=== PATIENT | female | born 1985 | race Caucasian/White ===

== ENCOUNTER 2017-12-02 22:01 | Observation (INO) | payer MEDICAID, SELFPAY ==
[2017-12-02 22:02] VITALS: BP 84/70; PULSE 111; RESP 13; TEMP 37.4; O2SAT 98; BMI 25.2
--- NOTE | 2017-12-02 22:19 | EKG12_ITS ---
Test Reason : EKG CHANGES Blood Pressure : / mmHG Vent. Rate : 091 BPM Atrial Rate : 091 BPM P-R Int : 146 ms QRS Dur : 104 ms QT Int : 380 ms P-R-T Axes : 067 -39 068 degrees QTc Int : 467 ms Normal sinus rhythm with sinus arrhythmia Left axis deviation Abnormal ECG Confirmed by MIREILLE ENCARNACION, ZHEN ([id number]), newspaper photo editor ROSSANA BECK ([id number]) on 12/05/2017 4:10:33 PM Referred By: EBONY Confirmed By:ZHEN KENDRICK MD
--- NOTE | 2017-12-02 22:19 | RAD_ITS ---
XR Chest 2 Views INDICATION: C/O PAIN OVER ENTIRE BODYPATIENT DID DRUGS PRIOR TO ARRIVALBEST IMAGES POSSIBLE DUE TO HOW PATIENT WAS ACTING COMPARISON: None TECHNIQUE: 2 views of the chest FINDINGS: Heart size and pulmonary vascularity are within normal limits. Lungs are hyperinflated, otherwise clear. There is hyperlucency projecting in the right upper and midlung field, could represent emphysematous changes. No evidence of pneumonia or pleural effusion. RAD/Chest PA and Lateral IMPRESSION: Hyperlucency centrally within the right upper lobe, may represent bulla. Correlation with prior film would be helpful, consider CT as clinically warranted. Lungs otherwise clear. at 0000 Reported and signed by: Marlene Diez MD Electronically Signed: Marlene Diez MD at 22:58 EDT Tel , Service support ,
--- NOTE | 2017-12-02 22:22 | ED.RN ---
NO OD EKG'S IN MUSE
[2017-12-02 22:53] LABS: Hematocrit 41.3 % (37-47); Hemoglobin 13.5 g/dl (12.0-15.0); Mean Corp Hgb Conc 32.7 g/gl (32-36); Mean Corpuscular Hgb 28.2 pg (27.0-32.0); Mean Corpuscular Volume 86.4 fL (81-99); Mean Platelet Vol. 9.2 fl (6.2-12.0); Platelet Count 301 K/mm3 (150-450); RBC Distribution Width CV 14.6 % (11.6-14.6); Red Blood Count 4.78 M/mm3 (4.2-5.4); White Blood Count 14.4 K/mm3 (4.4-11.0)
[2017-12-02 23:07] LABS: Erythrocyte Sedimentation Rate 12 mm/hr (0-20)
[2017-12-02 23:08] LABS: Prothrombin Time (Protime)PT. 13.3 SECONDS (11.7-14.9)
[2017-12-02 23:09] LABS: AST(SGOT) 20 U/L (15-37); Alanine Aminotransfer ALT/SGPT 26 U/L (13-56); Albumin, Serum 3.8 g/dL (3.2-5.0); Alkaline Phosphatase 89 U/L (45-117); Anion Gap 10 (5-15); BUN 14 mg/dL (7-18); BUN/Creat Ratio 16.5 RATIO (10-20); Bilirubin, Direct 0.15 mg/dL (0.00-0.30); Calcium,Total 8.6 mg/dL (8.5-10.1); Chloride 100 mmol/L (98-107); Creatinine, Serum 0.85 mg/dL (0.55-1.02); EST Glomerular Filtration Rate 83 mL/min (>60); Est Glom Filt Rate - Afr Amer 100 mL/min (>60); Estimated Creatinine Clearance 82.81 ml/min; Globulin 4.2 g/dL (2.2-4.2); Glucose 98 mg/dL (74-106); Partial Thromboplast Time 31.9 Seconds (24.1-36.2); Potassium 3.4 mmol/L (3.5-5.1); Sodium Level 138 mmol/L (136-145)
[2017-12-02 23:12] LABS: Red Blood Cells-Urine 0 SEEN /hpf (0-5)
[2017-12-02] MEDS: 0.9% Normal Saline 1,000 ML 1000 ML IV ×2 (23:13)
[2017-12-02 23:16] LABS: Color, Urine Yellow (Yellow); Glucose, Dipstick Normal (Normal); Ketone-Dipstick Negative (Negative); Leukocyte Esterase-Dipstick 500 /ul (Negative); Nitrite-Dipstick Negative (Negative); Occult Blood-Urine Negative /ul (Negative); Protein-Dipstick 15 mg/dl (Negative); Specific Gravity, Urine 1.015 (1.002-1.030); Urine Bilirubin Dipstick Negative (Negative); Urine Clarity Cloudy (Clear); Urine Urobilinogen 1 mg/dl (Normal)
--- NOTE | 2017-12-02 23:16 | ED.DCSUM_ITS ---
- ER Visit Summary Date of Service: 12/02/17 Chief Complaint: To ER by significant other because she is screaming that something is wrong holding the right side of her chest. History of Present Illness: The patient is a 32 F history of IV drug use. She has been injecting methamphetamine for approximately 1-1/2 years. She does complain of chills. She states she does not have a thermometer to assess her temperature. She denies headache. Denies visual, ocular or auditory symptoms. She denies sore throat or nasal congestion. She denies shortness of breath or difficulty breathing. She does report anterior right lower chest pain. She denies vomiting or diarrhea. She denies dysuria, frequency, urgency or hematuria. She denies any paresthesia, anesthesia or motor weakness. Hepatitis and HIV status is unknown Physical Examination: Patient is screaming. She has chills and piloerection upper extremity/forearms she is alert she is oriented. Vital signs remarkable for blood pressure 84 systolic with a heart rate of 111. She does appear ill. She does appear uncomfortable. Pupils are 4-5 mm and reactive. Posterior pharynx unremarkable. TMs are normal. Neck is supple. Heart is rapid and regular with no appreciable murmur, gallop or rub. Lungs are clear to auscultation. Abdomen is soft nontender with no hepatomegaly. Negative Ragland sign. Patient does have track johnson. Is no obvious evidence of cellulitis or abscess. Test Results: White count is 14.4 thousand 80 segs no bands 13 lymphs. Electrolyte panel was marked for potassium of 2 3.4. Hepatic is normal. Coags are normal. Lactate is normal, 1.2. Urine reveals leukoesterase; however, is negative for nitrites and blood. Microscopic is remarkable for pyuria 25-50 WBCs and 1+ bacteria. Two-view chest x-ray interpreted by me as negative. Emergency Department Course and Treatment: Since she complains of chills and does have history of IV drug use will obtain blood cultures ?3, CBC, BMP. Because she is hypotensive she received a fluid bolus and a lactate was ordered. Because there is concern for bacterial endocarditis sed rate was obtained as well. Because she is complaining of chest pain a chest x-ray was obtained as well as EKG. Will treat for presumptive endocarditis and she will receive Rocephin, vancomycin and gentamicin. Treatment Plan: Since patient's urine is positive will send urine culture. She did respond to fluids. Blood pressure is greater than 100 with a mean arterial pressure greater than 65. Heart rate has improved and is less than 100. Disposition: This was paged for admission suggest stepdown unit versus ICU Impression: 1. Hypotension fluid responsive 2. UTI 3. Rule out endocarditis 4. Severe sepsis This note was generated with [employer] dictation software. It may contain incorrect words, spelling, and punctuation that were not noted in review of the chart prior to signing ED Disposition - Plan for ED Patient: Chief Complaint: Abd Pain Referrals: Care Physician,No Primary [Primary Care Provider] -
[2017-12-02 23:22] LABS: Basophil% 0.1 % (0-1); Eosinophil# 0.07 X10^3/uL; Eosinophils% 0.5 % (0-5); Lymphocyte # 2.01 X10^3/ul (4.0); Lymphocyte % 13.7 % (19-41); Monocyte% 5.5 % (0-10); Neutrophil # 11.72 X10^3/uL (2.7-7.7); Neutrophil % 80.1 % (47-70)
[2017-12-02 23:23] LABS: Absolute Lymphocyte Count 1.97 X10^3/ul (0.83-4.51); Absolute Neutrophil Count 11.5 X10^3/uL (2.0-7.7); Basophil# 0.01 X10^3/uL
[2017-12-02 23:24] LABS: Differential Indicated SCAN CRITERIA MET; POSITIVE COUNT YES; POSITIVE DIFFERENTIAL NO; POSITIVE MORPHOLOGY NO
[2017-12-02 23:25] LABS: Lactic Acid 1.2 mmol/L (0.4-2.0)
[2017-12-02 23:27] LABS: Squamous Epithelial Cells - UA 0-5 SEEN /hpf (5-10); White Blood Cells 25-50 SEEN /hpf (0-5)
[2017-12-02 23:28] LABS: Bacteria 1+ /hpf (None Seen); Mucous, Urine 1+ /hpf (<or=2+)
[2017-12-02] MEDS: Ketorolac 30 MG/ML Syringe IV (23:39)
[2017-12-03] VITALS (12 sets, daily range): BP systolic 97–112; BP diastolic 53–71; PULSE 70–113; RESP 15–22; TEMP 37–37.6; O2SAT 96–99; BMI 24.5; BMI 24.6
[2017-12-03 00:02] LABS: Differential Comment SCANNED
--- NOTE | 2017-12-03 01:54 | ECHOCS_ITS ---
Reason For Study: Chest pain Procedure This was a 2D Doppler, Color Flow transthoracic echocardiogram. Exam performed portable in patient room. Left Ventricle Normal LV size. Left ventricular systolic function is normal. The estimated ejection fraction is 60 %. No evidence for diastolic dysfunction. No regional wall motion abnormalities noted. Right Ventricle Normal RV size. Normal systolic function. Atria Normal left atrium. Normal right atrium. Mitral Valve Normal mitral valve. Tricuspid Valve Normal tricuspid valve. Aortic Valve Normal aortic valve. Trisinus/trileaflet aortic valve. Pulmonic Valve Normal pulmonic valve. Great Vessels Normal aortic root. The pulmonary artery is normal size. Normal inferior vena cava. Pericardium/Pleural No pericardial effusion. MMode/2D Measurements & Calculations LVIDd: 4.6 cm IVSd: 0.98 cm Ao root diam: 2.7 cm LVIDs: 2.9 cm LVPWd: 0.91 cm LA dimension: 3.8 cm RVDd: 3.2 cm FS: 36.5 % LAV(MOD-bp): 33.9 ml LA A4 area: 15.1 cm2 RA A4 area: 12.9 cm2 LAV(MOD-bp) Indexed: 19.8 ml/m2 LAV(MOD-sp2): 28.6 ml LAV(MOD-sp4): 35.3 ml Doppler Measurements & Calculations MV E max juan: 99.7 cm/sec Lat Peak E' Juan: 11.8 cm/sec Med Peak E' Juan: 9.3 cm/sec MV A max juan: 96.3 cm/sec E/E' lat: 8.4 E/E' med: 10.7 MV E/A: 1.0 Ao V2 max: 130.5 cm/sec LV V1 max: 97.4 cm/sec PA V2 max: 82.3 cm/sec Ao max P.8 mmHg LV V1 max P.8 mmHg Interpretation Summary Normal LV size. Left ventricular systolic function is normal. The estimated ejection fraction is 60 %. No evidence for diastolic dysfunction. Structurally normal valves. Ordering Physician: Greg Hampton Referring Physician: Tammie PCP Performed By: Flaca Quevedo RDCS
[2017-12-03] MEDS: 0.9% Normal Saline 1,000 ML 150 ML IV ×3 (03:02→16:49)
--- NOTE | 2017-12-03 03:05 | PCM.HP.STD ---
Problem List (1) Drug abuse Status: Acute (2) UTI (urinary tract infection) Status: Acute (3) Sepsis Status: Acute History of Present Illness Date of Admission: 12/03/17 Chief Complaint: Sepsis secondary to UTI The patient is a 32 year old female w/ h/o IV methamphetamine abuse admitted for sepsis secondary to UTI. She is a poor historian secondary to being intoxicated with methamphetamine. She c/o chills and that the right side of her chest hurts. She is unable to tell the severity, duration, and triggers. She will be admitted for further workup. Past Medical History Allergies latex Allergy (Verified 12/02/17 22:04) Rash Lives: Friends Smoking Status: Current every day smoker Alcohol: None Drugs: - - Meth Review of Systems Constitutional: Denies: Chills, Fever, Weight Change HEENT: Denies: Head Aches, Sinus Congestion, Sinus Drainage Cardiovascular: Denies: Chest Pain, Palpitations Respiratory: Denies: Cough, Shortness of breath at rest, Sputum production Gastrointestinal: Denies: Abdominal Pain, Nausea, Vomiting Genitourinary: Denies: Dysuria Musculoskeletal: Denies: Joint Pain, Joint Tenderness Skin: Denies: Rash, Wounds Neurological: Denies: Numbness, Tingling, Focal weakness Psychiatric: Denies: Anxiety, Depression, Homicidal Ideations, Suicidal Ideations Hematologic/ Lymphatic: Denies: Easy Bruising, Easy Bleeding VTE Information - Inpt Only VTE Present on Admission: No VTE Mechan Device Prophylaxis: SCD's VTE Pharm Prophylaxis ordered?: Yes Patient Problems: Active and Suspected Problems Drug abuse (Acute) UTI (urinary tract infection) (Acute) Sepsis (Acute) - Physical Exam General: Alert, Oriented x3, Cooperative HEENT: Atraumatic, PERRLA, EOMI, Normocephalic Neck: Supple, No JVD, Negative Carotid Bruits Lungs: Clear to auscultation, Normal air movement Cardiovascular: Regular rate, No murmurs Abdomen: Bowel Sounds Present, Soft, Non Tender Extremities: No edema, Capillary Refill Less than 3 Seconds Skin: No rashes, No breakdown, - - Track johnson noted Musculoskeletal: No Tenderness to Palpation of Joints or Extremities Neurological: Cranial nerves II-XII grossly intact Psych/Mental Status: Normal Affect, Appropriate Vital Signs Temp Pulse Resp BP Pulse Ox 98.6 F 70 22 H 102/53 L 97 12/03/17 01:45 12/03/17 01:45 12/03/17 01:45 12/03/17 01:45 12/03/17 01:45 Oxygen Delivery Method Room Air Weight: 64.9 kg Body Mass Index (BMI) 24.5 Laboratory Tests Past 24 Hrs 12/03/17 12/03/17 12/03/17 02:10 02:10 02:10 Troponin I Pending Hep Bs Antigen Pending Hep Bs Antibody Pending Hepatitis C Ab (EIA) Pending Hepatitis C Comment Pending HIV 1&2 Antibody Pending Assessment/Plan Active and Suspected Problems Drug abuse (Acute) UTI (urinary tract infection) (Acute) Sepsis (Acute) 32 year old female w/ h/o IV methamphetamine abuse admitted for sepsis secondary to UTI. 1) UTI: Will start ceftriaxone. Will also start vancomycin and gentamicin for synergy mechanism in possible infective endocarditis. Cultures pending. 2) Severe sepsis: Pt is hypotensive. Will continue to give 30 ml/kg NS for hypotension. Cultures pending. ECHO pending. 3) Right sided chest pain: Probably MSK. Will get serial trops. ECHO pending. 4) Prophylaxis: SCD / Heparin.
--- NOTE | 2017-12-03 03:11 | PCM.RX.CS ---
Consult Pharmacy has been consulted to manage selected antiobiotic: Vancomycin Type of Consult: New start Suspected Infection: Sepsis Prior Doses of Antibiotics Received/Current Regimen: 1000mg given in ED 12/03/17 @0123 Medications Vancomycin HCl (Vancomycin) 1,000 mg in 200 mls @ 200 mls/hr IV Q8H CIRO Labs: Sodium 138 mmol/L (136-145) 12/02/17 22:25 Potassium 3.4 mmol/L (3.5-5.1) L 12/02/17 22:25 Chloride 100 mmol/L (98-107) 12/02/17 22:25 Carbon Dioxide 28.0 mmol/L (21.0-32.0) 12/02/17 22:25 Anion Gap 10 (5-15) 12/02/17 22:25 BUN 14 mg/dL (7-18) 12/02/17 22:25 Creatinine 0.85 mg/dL (0.55-1.02) 12/02/17 22:25 Est GFR (MDRD) Af Amer 100 mL/min (>60) 12/02/17 22:25 Est GFR (MDRD) Non-Af 83 mL/min (>60) 12/02/17 22:25 BUN/Creatinine Ratio 16.5 RATIO (10-20) 12/02/17 22:25 Glucose 98 mg/dL (74-106) 12/02/17 22:25 Weight used for dosin.9 kg Estimated Creatinine Clearance: 98 Goal Trough: 15-20 mcg/mL Pharmacy Plan for Drug Dosing: Pharmacy Service will continue to monitor and adjust dosing as required. Follow-Up Labs: Trough Vancomycin Labs to be done on [date and time ordered]: 12/04/17 @0030
[2017-12-03 03:30] LABS: Vista UDS pH Range 8
[2017-12-03 03:59] LABS: Amphetamine Urine VISTA POSITIVE (<1000 ng/mL); Barbiturate Urine VISTA NEGATIVE (< 200 ng/mL); Benzodiazepine Urine VISTA NEGATIVE (< 200 ng/mL); Cocaine Urine VISTA POSITIVE (< 300 ng/mL); Ecstacy Urine VISTA NEGATIVE (< 500 ng/mL); Methadone Urine VISTA NEGATIVE (< 300 ng/mL); PCP Urine VISTA NEGATIVE (< 25 ng/mL); THC Urine VISTA NEGATIVE (< 50 ng/mL)
[2017-12-03 05:25] LABS: Lactic Acid 0.6 mmol/L (0.4-2.0)
--- NOTE | 2017-12-03 05:55 | RAD_ITS ---
STUDY: X-RAY CHEST REASON FOR EXAM: Female, 32 years old. Shortness of breath. Body aches. TECHNIQUE: Single AP portable view of the chest. COMPARISON: Comparison is made with prior study dated December 02, 2017. FINDINGS: EKG electrodes are seen. The lungs are clear. The lungs are clear and expanded. There is no demonstrated pleural abnormality. Normal size heart. Normal mediastinum and shayla. Normal visualized pulmonary arteries. Normal visualized aortic arch and descending thoracic aorta. Normal visualized thoracic spine. Normal visualized ribs, clavicles, and shoulders. There is no demonstrated abnormality of the visualized soft tissue structures of the upper abdomen. RAD/Chest 1 View (Portable) IMPRESSION: Normal x-ray examination of the chest. Electronically Signed: Oscar Hobbs MD at 8:51 EDT Tel [phone], Service support ,
[2017-12-03 07:09] LABS: Gentamicin, Random 1.8 ug/mL
--- NOTE | 2017-12-03 07:37 | PCM.PROGNOTE ---
Patient Problems: Active and Suspected Problems Drug abuse (Acute) UTI (urinary tract infection) (Acute) Sepsis (Acute) Subjective: Patient is a 32-year-old female with history of IV amphetamine abuse and nicotine dependence who presented to the emergency room at [facility] [place] on 12/03/2017 complaining of chills and right-sided chest pain. She was a very poor historian. Vital signs at presentation to the emergency room were temperature 99.4, pulse rate 111, blood pressure 84/70, respiratory rate 13 and she was 98% saturated on room air. Significant lab included a white blood cell count of 14.4 with 80% neutrophils. Hemoglobin was 13.5 and platelets were 301,000. Potassium was mildly decreased at 3.4. LFTs were unremarkable. Lactic acid at admission was 1.2. Troponin was less than 0.02. BUN was 14 with a creatinine of 0.85. The urine had 25-50 WBCs and 0-5 squamous epithelial cells. He was nitrite negative. Urine tox screen was positive for amphetamines and cocaine. Chest x-ray revealed no infiltrates. Blood and urine cultures were ordered. The patient was admitted to the hospital with a dx of severe sepsis secondary to urinary tract infection and started on vancomycin, gentamicin and ceftriaxone. She started using meth to get off heroin. She tells me that she started using heroin when her son . Apparently he had a trach and possibly some defects. Prior to that she used POT and other drugs when she was in high school but tells me she quit using drugs when she became a mother. She has 3 other children and they are in foster care. Her is also an IV drug user and they share needles. She has not been tested for HIV or hepatitis and neither has her . She has never been to rehab and when I asked her if she was interested in talking to a drug counsellor about drug rehab she told me know. Neither she not her have jobs. She appears anxious and is constantly moving. She wants to know when she may get out of the hospital. She is c/o of R lateral abdominal pain and pain in the R flank. No imaging of the R kidney was done at admission but she had a ECHO today to r/o endocarditis. The blood pressure improved with hydration and so has the heart rate. She continues to have periods of sinus tachycardia when she is up and about. Echocardiogram shows a 60% ejection fraction with no evidence for diastolic dysfunction and structurally normal valves with no evidence of vegetation. - Physical Exam General: Alert, Cooperative, - - She is restless and does not make good eye contact HEENT: Atraumatic, Normocephalic Oral: Dry Mucosa Neck: Supple, No Nodes, Trachea Midline Lungs: Clear to auscultation Cardiovascular: Regular Rhythm, Normal S1, Normal S2, No murmurs, No Gallop, Tachycardic, - - telemetry shows NSR and ST with no significant ectopy Abdomen: Bowel Sounds Present, Soft, Non-Distended, Tender - she complains of tenderness but, she has no guarding Extremities: No clubbing, No cyanosis, No edema Skin: No rashes, No breakdown Neurological: Cranial nerves II-XII grossly intact, Neuro grossly intact Psych/Mental Status: Appropriate, - - restless Vital Signs Temp Pulse Resp BP Pulse Ox 99.7 F H 107 H 18 111/59 L 96 12/03/17 06:34 12/03/17 07:00 12/03/17 06:34 12/03/17 06:34 12/03/17 06:34 Oxygen Delivery Method Room Air Weight: 143 lb 1.28 oz Body Mass Index (BMI) 24.5 Intake and Output for Last 24 Hours 12/01/17 12/02/17 12/03/17 22:59 23:59 23:59 Intake Total 1358 / 1358 Output Total 450 / 450 Balance 908 / 908 Laboratory Tests Past 24 Hrs 12/03/17 12/03/17 12/03/17 02:10 02:10 02:10 Lactic Acid Troponin I < 0.02 Random Gentamicin Hep Bs Antigen Pending Hep Bs Antibody Pending Hepatitis C Ab (EIA) Pending Hepatitis C Comment Pending HIV 1&2 Antibody Pending 12/03/17 12/03/17 12/03/17 04:50 04:50 06:15 Lactic Acid 0.6 Troponin I < 0.02 Random Gentamicin 1.8 Hep Bs Antigen Hep Bs Antibody Hepatitis C Ab (EIA) Hepatitis C Comment HIV 1&2 Antibody Assessment/Plan Active and Suspected Problems Drug abuse (Acute) UTI (urinary tract infection) (Acute) Sepsis (Acute) Impressions 1. severe sepsis ruled out - no end organ damage and the lactic acid was WNL at admisison 2. cystitis 3. Hypokalemia 4. tobacco dependence 5. Illicit IV drug use - drug screen positive for Meth and cocaine. She is currently afebrile. If she remains afebrile will likely Dc home in the AM. Refuses consult with [facility]. HIV and hepatitis panels are pending. antibiotic spectrum narrowed to Rocephin only. Code Visit Inpatient E&M: 10528 Subs Hosp L2
[2017-12-03] MEDS: 0.9% NaCl Peripheral Flush Adult/Peds IV (08:35)
[2017-12-03] MEDS: Acetaminophen 325 MG Tablet 650 MG PO (09:17)
[2017-12-03] MEDS: Ceftriaxone 1 GM/50 ML BAG IV (10:16)
--- NOTE | 2017-12-03 11:39 | CPS ---
CONT.PULSE OX PLACED AT BEDSIDE PER NURSE REQUEST, NOT TO SET UP AT THIS TIME. NURSE WILL SET UP ON PT WHEN PT. IS AWAKE.
[2017-12-03 12:25] LABS: HIV - WCH Non-Reactive (Nonreactive)
--- NOTE | 2017-12-03 13:08 | CASEMGMT ---
RN CM ASSESSMENT COMPLETE. LACE Strata: 1 Adm Dx: Sepsis, UTI, Drug Abuse Transition Planning/Care Coordination: SW referral for psychosocial evaluation secondary to drug abuse. Patient does not have insurance and no PCP, social work will provide information re: PCP (Madiha Butts). No home-going RN CM intervention needs identified. RN CM will follow hospital course in collaboration with social work and will assist should transition needs arise. Verbal handoff provided to RN KAREN, Eddie Thompson, JENN JONES. Disposition: Home T. Mni BSN, RN-BC, CCM
--- NOTE | 2017-12-03 13:26 | NURSING ---
This RN taking over care at this time
--- NOTE | 2017-12-03 18:38 | NURSING ---
Patient leaving floor AMA at this time
[2017-12-03 21:01] LABS: Internal QC Validated? YES +Cl - CLEAR BKGD; Pregnancy, Urine Negative Negative
--- NOTE | 2017-12-04 06:39 | PCM.DC.SUM ---
Discharge Date and Diagnosis Date of Admission: 12/03/17 Date of Discharge: 12/03/17 - AMA - Primary Discharge Diagnosis Severe sepsis - ruled out Cystitis Hypokalemia - Secondary Discharge Diagnosis IV drug abuse - Methamphetamine and Cocaine Tobacco dependence Hospital Course and Treatment Imaging Results: Clinical Impression(s) from Imaging Studies Chest X-Ray 12/02/17 22:19 IMPRESSION: Hyperlucency centrally within the right upper lobe, may represent bulla. Correlation with prior film would be helpful, consider CT as clinically warranted. Lungs otherwise clear. at 0000 Reported and signed by: Marlene Diez MD Electronically Signed: Marlene Diez MD at 22:58 EDT Tel , Service support , Chest X-Ray 12/03/17 05:55 IMPRESSION: Normal x-ray examination of the chest. Electronically Signed: Oscar Hobbs MD at 8:51 EDT Tel [phone], Service support , Laboratory Tests 12/02/17 12/02/17 12/02/17 22:25 22:25 22:25 WBC 14.4 H RBC 4.78 Hgb 13.5 Hct 41.3 MCV 86.4 MCH 28.2 MCHC 32.7 RDW 14.6 RDW Differential 46.0 H Plt Count 301 MPV 9.2 Immature Gran % (Auto) 0.100 Neut % (Auto) 80.1 H Lymph % (Auto) 13.7 L [place] % (Auto) 5.5 Eos % (Auto) 0.5 Baso % (Auto) 0.1 Absolute Neuts (auto) 11.5 H Absolute Lymphs (auto) 1.97 Total Counted Not Reportable Differential Comment SCANNED ESR 12 PT 13.3 INR 1.0 APTT 31.9 Sodium 138 Potassium 3.4 L Chloride 100 Carbon Dioxide 28.0 Anion Gap 10 BUN 14 Creatinine 0.85 Estim Creat Clear Calc 82.81 Est GFR (MDRD) Af Amer 100 Est GFR (MDRD) Non-Af 83 BUN/Creatinine Ratio 16.5 Glucose 98 Lactic Acid Calcium 8.6 Total Bilirubin 0.70 Direct Bilirubin 0.15 AST 20 ALT 26 Alkaline Phosphatase 89 Troponin I Total Protein 8.0 Albumin 3.8 Globulin 4.2 Urine Color Urine Clarity Urine pH Ur Specific [place] Urine Protein Urine Glucose (UA) Urine Ketones Urine Occult Blood Urine Nitrite Urine Bilirubin Urine Urobilinogen Ur Leukocyte Esterase Urine RBC Urine WBC Ur Squamous Epith Cells Urine Bacteria Urine Mucus Urine Test Random Gentamicin Urine Opiates Screen Urine Methadone Screen Ur Barbiturates Screen Ur Phencyclidine Scrn Ur Amphetamines Screen U Methamphetamin-MDMA U Benzodiazepines Scrn Urine Cocaine Screen U Cannabinoids Screen Ur Drug Screen Comment HIV 1&2 Antibody 12/02/17 12/02/17 12/02/17 22:25 22:55 22:55 WBC RBC Hgb Hct MCV MCH MCHC RDW RDW Differential Plt Count MPV Immature Gran % (Auto) Neut % (Auto) Lymph % (Auto) [place] % (Auto) Eos % (Auto) Baso % (Auto) Absolute Neuts (auto) Absolute Lymphs (auto) Total Counted Differential Comment ESR PT INR APTT Sodium Potassium Chloride Carbon Dioxide Anion Gap BUN Creatinine Estim Creat Clear Calc Est GFR (MDRD) Af Amer Est GFR (MDRD) Non-Af BUN/Creatinine Ratio Glucose Lactic Acid 1.2 Calcium Total Bilirubin Direct Bilirubin AST ALT Alkaline Phosphatase Troponin I Total Protein Albumin Globulin Urine Color Yellow Urine Clarity Cloudy Urine pH 8.0 Ur Specific [place] 1.015 Urine Protein 15 H Urine Glucose (UA) Normal Urine Ketones Negative Urine Occult Blood Negative Urine Nitrite Negative Urine Bilirubin Negative Urine Urobilinogen 1 H Ur Leukocyte Esterase 500 H Urine RBC 0 SEEN Urine WBC 25-50 SEEN Ur Squamous Epith Cells 0-5 SEEN Urine Bacteria 1+ Urine Mucus 1+ Urine Test Random Gentamicin Urine Opiates Screen NEGATIVE Urine Methadone Screen NEGATIVE Ur Barbiturates Screen NEGATIVE Ur Phencyclidine Scrn NEGATIVE Ur Amphetamines Screen POSITIVE H U Methamphetamin-MDMA NEGATIVE U Benzodiazepines Scrn NEGATIVE Urine Cocaine Screen POSITIVE H U Cannabinoids Screen NEGATIVE Ur Drug Screen Comment HIV 1&2 Antibody 12/02/17 12/03/17 12/03/17 22:55 02:10 02:10 WBC RBC Hgb Hct MCV MCH MCHC RDW RDW Differential Plt Count MPV Immature Gran % (Auto) Neut % (Auto) Lymph % (Auto) [place] % (Auto) Eos % (Auto) Baso % (Auto) Absolute Neuts (auto) Absolute Lymphs (auto) Total Counted Differential Comment ESR PT INR APTT Sodium Potassium Chloride Carbon Dioxide Anion Gap BUN Creatinine Estim Creat Clear Calc Est GFR (MDRD) Af Amer Est GFR (MDRD) Non-Af BUN/Creatinine Ratio Glucose Lactic Acid Calcium Total Bilirubin Direct Bilirubin AST ALT Alkaline Phosphatase Troponin I < 0.02 Total Protein Albumin Globulin Urine Color Urine Clarity Urine pH Ur Specific [place] Urine Protein Urine Glucose (UA) Urine Ketones Urine Occult Blood Urine Nitrite Urine Bilirubin Urine Urobilinogen Ur Leukocyte Esterase Urine RBC Urine WBC Ur Squamous Epith Cells Urine Bacteria Urine Mucus Urine Test Negative Random Gentamicin Urine Opiates Screen Urine Methadone Screen Ur Barbiturates Screen Ur Phencyclidine Scrn Ur Amphetamines Screen U Methamphetamin-MDMA U Benzodiazepines Scrn Urine Cocaine Screen U Cannabinoids Screen Ur Drug Screen Comment HIV 1&2 Antibody Non-Reactive 12/03/17 12/03/17 12/03/17 04:50 04:50 06:15 WBC RBC Hgb Hct MCV MCH MCHC RDW RDW Differential Plt Count MPV Immature Gran % (Auto) Neut % (Auto) Lymph % (Auto) [place] % (Auto) Eos % (Auto) Baso % (Auto) Absolute Neuts (auto) Absolute Lymphs (auto) Total Counted Differential Comment ESR PT INR APTT Sodium Potassium Chloride Carbon Dioxide Anion Gap BUN Creatinine Estim Creat Clear Calc Est GFR (MDRD) Af Amer Est GFR (MDRD) Non-Af BUN/Creatinine Ratio Glucose Lactic Acid 0.6 Calcium Total Bilirubin Direct Bilirubin AST ALT Alkaline Phosphatase Troponin I < 0.02 Total Protein Albumin Globulin Urine Color Urine Clarity Urine pH Ur Specific [place] Urine Protein Urine Glucose (UA) Urine Ketones Urine Occult Blood Urine Nitrite Urine Bilirubin Urine Urobilinogen Ur Leukocyte Esterase Urine RBC Urine WBC Ur Squamous Epith Cells Urine Bacteria Urine Mucus Urine Test Random Gentamicin 1.8 Urine Opiates Screen Urine Methadone Screen Ur Barbiturates Screen Ur Phencyclidine Scrn Ur Amphetamines Screen U Methamphetamin-MDMA U Benzodiazepines Scrn Urine Cocaine Screen U Cannabinoids Screen Ur Drug Screen Comment HIV 1&2 Antibody 12/03/17 12/03/17 09:25 14:42 WBC RBC Hgb Hct MCV MCH MCHC RDW RDW Differential Plt Count MPV Immature Gran % (Auto) Neut % (Auto) Lymph % (Auto) [place] % (Auto) Eos % (Auto) Baso % (Auto) Absolute Neuts (auto) Absolute Lymphs (auto) Total Counted Differential Comment ESR PT INR APTT Sodium Potassium Chloride Carbon Dioxide Anion Gap BUN Creatinine Estim Creat Clear Calc Est GFR (MDRD) Af Amer Est GFR (MDRD) Non-Af BUN/Creatinine Ratio Glucose Lactic Acid Calcium Total Bilirubin Direct Bilirubin AST ALT Alkaline Phosphatase Troponin I < 0.02 < 0.02 Total Protein Albumin Globulin Urine Color Urine Clarity Urine pH Ur Specific [place] Urine Protein Urine Glucose (UA) Urine Ketones Urine Occult Blood Urine Nitrite Urine Bilirubin Urine Urobilinogen Ur Leukocyte Esterase Urine RBC Urine WBC Ur Squamous Epith Cells Urine Bacteria Urine Mucus Urine Test Random Gentamicin Urine Opiates Screen Urine Methadone Screen Ur Barbiturates Screen Ur Phencyclidine Scrn Ur Amphetamines Screen U Methamphetamin-MDMA U Benzodiazepines Scrn Urine Cocaine Screen U Cannabinoids Screen Ur Drug Screen Comment HIV 1&2 Antibody none Operations: None Procedures: None Summary of Care Provided: Patient is a 32-year-old female with history of IV amphetamine abuse and nicotine dependence who presented to the emergency room at [facility] on 12/03/2017 complaining of chills and right-sided chest pain. She was a very poor historian. Vital signs at presentation to the emergency room were temperature 99.4, pulse rate 111, blood pressure 84/70, respiratory rate 13 and she was 98% saturated on room air. Significant lab included a white blood cell count of 14.4 with 80% neutrophils. Hemoglobin was 13.5 and platelets were 301,000. Potassium was mildly decreased at 3.4. LFTs were unremarkable. Lactic acid at admission was 1.2. Troponin was less than 0.02. BUN was 14 with a creatinine of 0.85. The urine had 25-50 WBCs and 0-5 squamous epithelial cells and was nitrite negative. Urine tox screen was positive for amphetamines and cocaine. Chest x-ray revealed no infiltrates. Blood and urine cultures were ordered. The patient was admitted to the hospital with a dx of severe sepsis secondary to urinary tract infection and started on vancomycin, gentamicin and ceftriaxone. The admitting physician ordered a ECHO to rule out endocarditis and it revealed a normal ejection fraction with no vegetations and no valvular heart disease. Gentamicin and vancomycin were discontinued and she was maintained on ceftriaxone. Drug rehabilitation was discussed with her and she refused referral to [facility]. Late in the afternoon on 12/03/2017 she elected to leave AGAINST MEDICAL ADVICE. Once again she was offered drug rehabilitation counseling and she refused. The last set of vital signs at 5 PM were temperature 98.6, heart rate 95, blood pressure 112/70, respiratory rate 16 and she was 98% saturated on room air. She was alert and oriented ?3 and able to make informed decisions. She was informed that she may return to the emergency room if she changes her mind and wants readmitted. No prescriptions were given since she chose to leave AMA and the cultures were still pending. HIV wqas non-reactive and the hepatitis panel is still pending. This note was generated with [employer] dictation software. It may contain incorrect words, spelling, and punctuation that were not noted in checking the note before signing. Primary Care Physician: Care Physician,No Primary [Primary Care Provider] - Disposition: Against Medical Advice Minutes spent on discharge:: 35 Patient Condition:: Guarded Meaningful Use Info Meaningful Use Diagnoses (Choose all that apply): None applicable Code Visit Inpatient E&M: 85870 Disch Hosp
--- NOTE | 2017-12-04 06:50 | DS.PCM_ITS ---
Discharge Date and Diagnosis Date of Admission: 12/03/17 Date of Discharge: 12/03/17 - AMA - Primary Discharge Diagnosis Severe sepsis - ruled out Cystitis Hypokalemia - Secondary Discharge Diagnosis IV drug abuse - Methamphetamine and Cocaine Tobacco dependence Hospital Course and Treatment Imaging Results: Clinical Impression(s) from Imaging Studies Chest X-Ray 12/02/17 22:19 IMPRESSION: Hyperlucency centrally within the right upper lobe, may represent bulla. Correlation with prior film would be helpful, consider CT as clinically warranted. Lungs otherwise clear. at 0000 Reported and signed by: Marlene Diez MD Electronically Signed: Marlene Diez MD at 22:58 EDT Tel , Service support , Chest X-Ray 12/03/17 05:55 IMPRESSION: Normal x-ray examination of the chest. Electronically Signed: Oscar Hobbs MD at 8:51 EDT Tel [phone], Service support , Laboratory Tests 12/02/17 12/02/17 12/02/17 22:25 22:25 22:25 WBC 14.4 H RBC 4.78 Hgb 13.5 Hct 41.3 MCV 86.4 MCH 28.2 MCHC 32.7 RDW 14.6 RDW Differential 46.0 H Plt Count 301 MPV 9.2 Immature Gran % (Auto) 0.100 Neut % (Auto) 80.1 H Lymph % (Auto) 13.7 L [place] % (Auto) 5.5 Eos % (Auto) 0.5 Baso % (Auto) 0.1 Absolute Neuts (auto) 11.5 H Absolute Lymphs (auto) 1.97 Total Counted Not Reportable Differential Comment SCANNED ESR 12 PT 13.3 INR 1.0 APTT 31.9 Sodium 138 Potassium 3.4 L Chloride 100 Carbon Dioxide 28.0 Anion Gap 10 BUN 14 Creatinine 0.85 Estim Creat Clear Calc 82.81 Est GFR (MDRD) Af Amer 100 Est GFR (MDRD) Non-Af 83 BUN/Creatinine Ratio 16.5 Glucose 98 Lactic Acid Calcium 8.6 Total Bilirubin 0.70 Direct Bilirubin 0.15 AST 20 ALT 26 Alkaline Phosphatase 89 Troponin I Total Protein 8.0 Albumin 3.8 Globulin 4.2 Urine Color Urine Clarity Urine pH Ur Specific [place] Urine Protein Urine Glucose (UA) Urine Ketones Urine Occult Blood Urine Nitrite Urine Bilirubin Urine Urobilinogen Ur Leukocyte Esterase Urine RBC Urine WBC Ur Squamous Epith Cells Urine Bacteria Urine Mucus Urine Test Random Gentamicin Urine Opiates Screen Urine Methadone Screen Ur Barbiturates Screen Ur Phencyclidine Scrn Ur Amphetamines Screen U Methamphetamin-MDMA U Benzodiazepines Scrn Urine Cocaine Screen U Cannabinoids Screen Ur Drug Screen Comment HIV 1&2 Antibody 12/02/17 12/02/17 12/02/17 22:25 22:55 22:55 WBC RBC Hgb Hct MCV MCH MCHC RDW RDW Differential Plt Count MPV Immature Gran % (Auto) Neut % (Auto) Lymph % (Auto) [place] % (Auto) Eos % (Auto) Baso % (Auto) Absolute Neuts (auto) Absolute Lymphs (auto) Total Counted Differential Comment ESR PT INR APTT Sodium Potassium Chloride Carbon Dioxide Anion Gap BUN Creatinine Estim Creat Clear Calc Est GFR (MDRD) Af Amer Est GFR (MDRD) Non-Af BUN/Creatinine Ratio Glucose Lactic Acid 1.2 Calcium Total Bilirubin Direct Bilirubin AST ALT Alkaline Phosphatase Troponin I Total Protein Albumin Globulin Urine Color Yellow Urine Clarity Cloudy Urine pH 8.0 Ur Specific [place] 1.015 Urine Protein 15 H Urine Glucose (UA) Normal Urine Ketones Negative Urine Occult Blood Negative Urine Nitrite Negative Urine Bilirubin Negative Urine Urobilinogen 1 H Ur Leukocyte Esterase 500 H Urine RBC 0 SEEN Urine WBC 25-50 SEEN Ur Squamous Epith Cells 0-5 SEEN Urine Bacteria 1+ Urine Mucus 1+ Urine Test Random Gentamicin Urine Opiates Screen NEGATIVE Urine Methadone Screen NEGATIVE Ur Barbiturates Screen NEGATIVE Ur Phencyclidine Scrn NEGATIVE Ur Amphetamines Screen POSITIVE H U Methamphetamin-MDMA NEGATIVE U Benzodiazepines Scrn NEGATIVE Urine Cocaine Screen POSITIVE H U Cannabinoids Screen NEGATIVE Ur Drug Screen Comment HIV 1&2 Antibody 12/02/17 12/03/17 12/03/17 22:55 02:10 02:10 WBC RBC Hgb Hct MCV MCH MCHC RDW RDW Differential Plt Count MPV Immature Gran % (Auto) Neut % (Auto) Lymph % (Auto) [place] % (Auto) Eos % (Auto) Baso % (Auto) Absolute Neuts (auto) Absolute Lymphs (auto) Total Counted Differential Comment ESR PT INR APTT Sodium Potassium Chloride Carbon Dioxide Anion Gap BUN Creatinine Estim Creat Clear Calc Est GFR (MDRD) Af Amer Est GFR (MDRD) Non-Af BUN/Creatinine Ratio Glucose Lactic Acid Calcium Total Bilirubin Direct Bilirubin AST ALT Alkaline Phosphatase Troponin I < 0.02 Total Protein Albumin Globulin Urine Color Urine Clarity Urine pH Ur Specific [place] Urine Protein Urine Glucose (UA) Urine Ketones Urine Occult Blood Urine Nitrite Urine Bilirubin Urine Urobilinogen Ur Leukocyte Esterase Urine RBC Urine WBC Ur Squamous Epith Cells Urine Bacteria Urine Mucus Urine Test Negative Random Gentamicin Urine Opiates Screen Urine Methadone Screen Ur Barbiturates Screen Ur Phencyclidine Scrn Ur Amphetamines Screen U Methamphetamin-MDMA U Benzodiazepines Scrn Urine Cocaine Screen U Cannabinoids Screen Ur Drug Screen Comment HIV 1&2 Antibody Non-Reactive 12/03/17 12/03/17 12/03/17 04:50 04:50 06:15 WBC RBC Hgb Hct MCV MCH MCHC RDW RDW Differential Plt Count MPV Immature Gran % (Auto) Neut % (Auto) Lymph % (Auto) [place] % (Auto) Eos % (Auto) Baso % (Auto) Absolute Neuts (auto) Absolute Lymphs (auto) Total Counted Differential Comment ESR PT INR APTT Sodium Potassium Chloride Carbon Dioxide Anion Gap BUN Creatinine Estim Creat Clear Calc Est GFR (MDRD) Af Amer Est GFR (MDRD) Non-Af BUN/Creatinine Ratio Glucose Lactic Acid 0.6 Calcium Total Bilirubin Direct Bilirubin AST ALT Alkaline Phosphatase Troponin I < 0.02 Total Protein Albumin Globulin Urine Color Urine Clarity Urine pH Ur Specific [place] Urine Protein Urine Glucose (UA) Urine Ketones Urine Occult Blood Urine Nitrite Urine Bilirubin Urine Urobilinogen Ur Leukocyte Esterase Urine RBC Urine WBC Ur Squamous Epith Cells Urine Bacteria Urine Mucus Urine Test Random Gentamicin 1.8 Urine Opiates Screen Urine Methadone Screen Ur Barbiturates Screen Ur Phencyclidine Scrn Ur Amphetamines Screen U Methamphetamin-MDMA U Benzodiazepines Scrn Urine Cocaine Screen U Cannabinoids Screen Ur Drug Screen Comment HIV 1&2 Antibody 12/03/17 12/03/17 09:25 14:42 WBC RBC Hgb Hct MCV MCH MCHC RDW RDW Differential Plt Count MPV Immature Gran % (Auto) Neut % (Auto) Lymph % (Auto) [place] % (Auto) Eos % (Auto) Baso % (Auto) Absolute Neuts (auto) Absolute Lymphs (auto) Total Counted Differential Comment ESR PT INR APTT Sodium Potassium Chloride Carbon Dioxide Anion Gap BUN Creatinine Estim Creat Clear Calc Est GFR (MDRD) Af Amer Est GFR (MDRD) Non-Af BUN/Creatinine Ratio Glucose Lactic Acid Calcium Total Bilirubin Direct Bilirubin AST ALT Alkaline Phosphatase Troponin I < 0.02 < 0.02 Total Protein Albumin Globulin Urine Color Urine Clarity Urine pH Ur Specific [place] Urine Protein Urine Glucose (UA) Urine Ketones Urine Occult Blood Urine Nitrite Urine Bilirubin Urine Urobilinogen Ur Leukocyte Esterase Urine RBC Urine WBC Ur Squamous Epith Cells Urine Bacteria Urine Mucus Urine Test Random Gentamicin Urine Opiates Screen Urine Methadone Screen Ur Barbiturates Screen Ur Phencyclidine Scrn Ur Amphetamines Screen U Methamphetamin-MDMA U Benzodiazepines Scrn Urine Cocaine Screen U Cannabinoids Screen Ur Drug Screen Comment HIV 1&2 Antibody none Operations: None Procedures: None Summary of Care Provided: Patient is a 32-year-old female with history of IV amphetamine abuse and nicotine dependence who presented to the emergency room at [facility] on 12/03/2017 complaining of chills and right-sided chest pain. She was a very poor historian. Vital signs at presentation to the emergency room were temperature 99.4, pulse rate 111, blood pressure 84/70, respiratory rate 13 and she was 98% saturated on room air. Significant lab included a white blood cell count of 14.4 with 80% neutrophils. Hemoglobin was 13.5 and platelets were 301,000. Potassium was mildly decreased at 3.4. LFTs were unremarkable. Lactic acid at admission was 1.2. Troponin was less than 0.02. BUN was 14 with a creatinine of 0.85. The urine had 25-50 WBCs and 0-5 squamous epithelial cells and was nitrite negative. Urine tox screen was positive for amphetamines and cocaine. Chest x-ray revealed no infiltrates. Blood and urine cultures were ordered. The patient was admitted to the hospital with a dx of severe sepsis secondary to urinary tract infection and started on vancomycin, gentamicin and ceftriaxone. The admitting physician ordered a ECHO to rule out endocarditis and it revealed a normal ejection fraction with no vegetations and no valvular heart disease. Gentamicin and vancomycin were discontinued and she was maintained on ceftriaxone. Drug rehabilitation was discussed with her and she refused referral to [facility]. Late in the afternoon on 12/03/2017 she elected to leave AGAINST MEDICAL ADVICE. Once again she was offered drug rehabilitation counseling and she refused. The last set of vital signs at 5 PM were temperature 98.6, heart rate 95, blood pressure 112/70, respiratory rate 16 and she was 98% saturated on room air. She was alert and oriented ?3 and able to make informed decisions. She was informed that she may return to the emergency room if she changes her mind and wants readmitted. No prescriptions were given since she chose to leave AMA and the cultures were still pending. HIV wqas non-reactive and the hepatitis panel is still pending. This note was generated with [employer] dictation software. It may contain incorrect words, spelling, and punctuation that were not noted in checking the note before signing. Primary Care Physician: Care Physician,No Primary [Primary Care Provider] - Disposition: Against Medical Advice Minutes spent on discharge:: 35 Patient Condition:: Guarded Meaningful Use Info Meaningful Use Diagnoses (Choose all that apply): None applicable Code Visit Inpatient E&M: 85834 Disch Hosp
[2017-12-04 09:08] LABS: HEPATITIS B SURFACE AG 6510 Negative (Negative); Hepatitis C Ab >11.0 s/co ratio (0.0-0.9)
[2017-12-04 11:25] LABS: Hep B Surface Antibodies Non Reactive (.)
== END 2017-12-03 18:35 | disposition left against medical advice (07) | DRG 690 ==
LOC: ED 12-03 00:20 → PCU 12-03 01:50
PROVIDERS: Admitting Provider Internal Medicine; Emergency Provider Emergency Medicine; Visit Provider Internal Medicine
DX: N30.90 Cystitis, unspecified without hematuria (principal); E87.6 Hypokalemia; F15.10 Other stimulant abuse, uncomplicated; F17.200 Nicotine dependence, unspecified, uncomplicated; F14.10 Cocaine abuse, uncomplicated
CPT/HCPCS: 36415; 51702; 71045; 71046; 80048; 80076; 80170; 80307; 81001; 81025; 83605; 84484; 85025; 85610; 85652; 85730; 86703; 86706; 86803; 87040; 87086; 87088; 87340; 93005; 93306; 97802; 99218; 99285; 99406; J7030; J7040; A4216; C8929; G0378; J3490

== ENCOUNTER 2019-03-28 16:26 | Emergency (ER) | payer SELFPAY ==
[2019-03-28 16:29] VITALS: BP 120/88; PULSE 84; RESP 18; TEMP 36.8; O2SAT 99; BMI 26.9
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
--- NOTE | 2019-03-28 17:10 | RAD_ITS ---
STUDY: X-RAY - LEFT HAND REASON FOR EXAM: Female, 33 years old. Pain TECHNIQUE: 3 view(s) of the hand. COMPARISON: None. FINDINGS: There is a comminuted fracture of the fifth proximal phalanx. There is no evidence of intra-articular extension. There is moderate displacement. There are no significant degenerative changes. There are no radiodense foreign bodies. RAD/Hand Min 3 Views IMPRESSION: Comminuted fracture of the fifth proximal phalanx. Electronically Signed: Jake Prakash, at 17:39 EDT Tel , Service support ,
[2019-03-28] MEDS: HYDROcodone Bitartrate/Apap 5/325 Tablet PO (17:20)
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
== END 2019-03-28 18:12 | disposition home or self-care (01) ==
PROVIDERS: Emergency Provider Emergency Medicine
DX: S62.617A Displaced fracture of proximal phalanx of left little finger, initial encounter for closed fracture (principal); S00.83XA Contusion of other part of head, initial encounter; T14.8XXA Other injury of unspecified body region, initial encounter; K02.9 Dental caries, unspecified; Y08.89XA Assault by other specified means, initial encounter; Y93.55 Activity, bike riding; Y92.9 Unspecified place or not applicable
CPT/HCPCS: 70486; 73130; 99283

== ENCOUNTER 2019-05-21 00:05 | Emergency (ER) | payer SELFPAY ==
[2019-05-21 00:06] VITALS: BP 115/78; PULSE 109; RESP 30; TEMP 37.2; O2SAT 99; BMI 27.1
--- NOTE | 2019-05-21 00:10 | ED.RN ---
CALLED FOR EKG PER RN REQUEST, PULLED OLD EKGS FOR
--- NOTE | 2019-05-21 00:25 | RAD_ITS ---
STUDY: X-RAY CHEST REASON FOR EXAM: Female, 34 years old. Chest tightness TECHNIQUE: 2 views COMPARISON: December 03 2017 FINDINGS: The lungs are clear and expanded. There is no demonstrated pleural abnormality. Normal size heart. Normal mediastinum and shayla. Normal visualized pulmonary arteries. Normal visualized aortic arch and descending thoracic aorta. Normal visualized thoracic spine. Normal visualized ribs, clavicles, and shoulders. There is no demonstrated abnormality of the visualized soft tissue structures of the upper abdomen. RAD/Chest PA and Lateral IMPRESSION: Normal x-ray examination of the chest. No acute findings in the lungs Electronically Signed: Brandon Colin MD at 1:17 EDT Tel , Service support ,
--- NOTE | 2019-05-21 00:25 | EKG12_ITS ---
Test Reason : CP Blood Pressure : / mmHG Vent. Rate : 103 BPM Atrial Rate : 103 BPM P-R Int : 136 ms QRS Dur : 090 ms QT Int : 372 ms P-R-T Axes : 070 046 041 degrees QTc Int : 487 ms Sinus tachycardia Otherwise normal ECG Confirmed by MALLY MEIER ([id number]), publications editor KANCHAN MICHEL ([id number]) on 05/27/2019 10:00:39 AM Referred By: SUMMER Confirmed By:MALLY MEIER
--- NOTE | 2019-05-21 00:25 | CT_ITS ---
STUDY: CT BRAIN WITHOUT CONTRAST REASON FOR EXAM: Female, 34 years old. Headaches RADIATION DOSAGE (If Supplied By Facility): CTDIvol = ( 44.99 ) mGy, DLP = ( 796.11 ) mGycm TECHNIQUE: Transaxial CT imaging of the brain was performed without administration of intravenous contrast material. Individualized dose optimization techniques were used for this CT. COMPARISON: No relevant priors. FINDINGS: Normal soft tissue structures. Normal calvarium. Normal size ventricles and extra-axial spaces for the patient's age. Normal white matter tracts of the cerebral hemispheres. Normal basal ganglia and thalami. Normal brainstem. Normal cerebellum. There is no intracranial hemorrhage. There are no findings of an acute ischemic infarction. Normal visualized paranasal sinuses. CT/Brain/Head without Contrast IMPRESSION: Normal unenhanced CT scan of the brain. No acute findings in the brain Electronically Signed: Brandon Colin MD at 2:07 EDT Tel , Service support ,
--- NOTE | 2019-05-21 00:27 | ED.VIS.GEN ---
History of Present Illness Chief Complaint: Headache Narrative: This patient is a 34-year-old female with a history of polysubstance abuse. She states she was dope sick all day today. Her last heroin use was about 4 AM. She found a bag of dope that she is not sure what it was and injected IV about an hour before presentation. She immediately developed a severe headache, chest tightness, heart racing, upper back pain. No history of prior similar symptoms. Past Medical History - Allergies and Home Meds Allergies/Adverse Reactions: Allergies latex Allergy (Verified 05/21/19 00:09) Rash Primary Care Physician: Care Physician,No Primary [Primary Care Provider] - Past Medical History: - - Polysubstance abuse Smoking Status: Current every day smoker Review of Systems All systems negative except as indicated General: Denies: Fever Cardiovascular: Reports: Chest pain, Palpitations, Heart racing Respiratory: Reports: Dyspnea Gastrointestinal: Denies: Vomiting, Diarrhea Neurological: Reports: Headache Physical Exam Vital Signs/Narrative: Vital Signs Temp Pulse Resp BP Pulse Ox 05/21/19 00:06 98.9 F 109 H 30 H 115/78 99 General: Acute Distress Head: Normocephalic, Atraumatic Eyes: EOMI ENT: Moist mucous membranes Cardiovascular: - - Heart is regular tachycardia I do not appreciate a murmur Respiratory: - - Tachypnea, lungs are clear without rales rhonchi or wheezes Abdomen: Soft Extremities: Nontender Skin: Normal color Neurological: Alert Psychological: Tearful Diagnostic/Tx/Re-eval Impressions Brain CT 05/21/19 00:25 IMPRESSION: Normal unenhanced CT scan of the brain. No acute findings in the brain Electronically Signed: Brandon Colin MD at 2:07 EDT Tel , Service support , Chest X-Ray 05/21/19 00:25 IMPRESSION: Normal x-ray examination of the chest. No acute findings in the lungs Electronically Signed: Brandon Colin MD at 1:17 EDT Tel , Service support , 05/21/19 00:25 CT Head [Brain/Head without Contrast] [CT] Stat Chest PA and Lateral [RAD] Stat Laboratory Results 05/21/19 05/21/19 00:31 00:31 WBC 6.3 RBC 4.65 Hgb 12.1 Hct 37.0 MCV 79.6 L MCH 26.0 L MCHC 32.7 RDW Std Deviation 40.1 RDW Coeff of Parish 14.1 Plt Count 290 MPV 9.0 Immature Gran % (Auto) 0.200 Neut % (Auto) 85.7 H Lymph % (Auto) 12.0 L Marshall % (Auto) 1.3 Eos % (Auto) 0.5 Baso % (Auto) 0.3 Absolute Neuts (auto) 5.4 Absolute Lymphs (auto) 0.76 L Nucleated RBC % 0 Sodium 137 Potassium 3.1 L Chloride 107 Carbon Dioxide 21.0 Anion Gap 9 BUN 18 Creatinine 0.92 Estim Creat Clear Calc 75.11 Est GFR (MDRD) Af Amer 91 Est GFR (MDRD) Non-Af 75 BUN/Creatinine Ratio 19.6 Glucose 127 H Calcium 8.9 Troponin I < 0.015 - EKG Initial EKG Interpretation: Sinus Tachycardia - Medical Decision Making EKG shows sinus tachycardia at a rate of 103 with no acute ischemic changes. Laboratory studies including troponin notable only for mild hypokalemia, she was given oral potassium chloride here. Chest x-ray and CT of the head are normal. I do believe her symptoms were related to drug use and that she likely received a stimulant rather than an opioid. She does feel much better on reevaluation. She was counseled on drug cessation and was discharged home. ED Disposition - Plan for ED Patient: Disposition: Home or Assisted Living Diagnosis: Drug abuse, Headache, Palpitations Instructions: HEADACHE, Unspecified, Palpitations Referrals: Care Physician,No Primary [Primary Care Provider] -
[2019-05-21] MEDS: LORazepam 2 MG/ML Syringe 1 MG IV (00:36)
[2019-05-21 00:38] LABS: Absolute Lymphocyte Count 0.76 X10^3/uL (0.83-4.51); Absolute Neutrophil Count 5.4 X10^3/uL (2.0-7.7); Basophil# 0.02 X10^3/uL; Basophil% 0.3 % (0-1); Eosinophil# 0.03 X10^3/uL; Eosinophils% 0.5 % (0-5); Hemoglobin 12.1 g/dL (12.0-15.0); Lymphocyte # 0.76 X10^3/ul (4.0); Mean Corp Hgb Conc 32.7 g/dL (32-36); Mean Corpuscular Volume 79.6 fL (81-99); Monocyte# 0.08 X10^3/uL; Monocyte% 1.3 % (0-10); NRBC Flagged by Analyzer 0 % (0-5); Neutrophil # 5.42 X10^3/uL (2.7-7.7); Neutrophil % 85.7 % (47-70); Platelet Count 290 K/mm3 (150-450); RBC Distribution Width CV 14.1 % (11.6-14.6); RBC Distribution Width SD 40.1 fl (35.1-43.9); Red Blood Count 4.65 M/mm3 (4.2-5.4); White Blood Count 6.3 K/mm3 (4.4-11.0)
[2019-05-21 00:57] LABS: Anion Gap 9 (5-15); BUN 18 mg/dL (7-18); BUN/Creat Ratio 19.6 RATIO (10-20); Calcium,Total 8.9 mg/dL (8.5-10.1); Chloride 107 mmol/L (98-107); Creatinine, Serum 0.92 mg/dL (0.55-1.02); EST Glomerular Filtration Rate 75 mL/min (>60); Est Glom Filt Rate - Afr Amer 91 mL/min (>60); Estimated Creatinine Clearance 75.11 ml/min; Glucose 127 mg/dL (74-106); Potassium 3.1 mmol/L (3.5-5.1); Sodium Level 137 mmol/L (136-145)
[2019-05-21 01:15] VITALS: BP 115/71; O2SAT 97
[2019-05-21 02:43] VITALS: BP 116/75; PULSE 108; RESP 18; O2SAT 99
--- NOTE | 2019-05-21 02:47 | ED.RN ---
PT REQUESTED PAPER PANTS AND THEY WERE PROVIDED. OKAY BY FOR PT TO WALK HOME. PENDING CHARGE NURSE APPROVAL.
--- NOTE | 2019-05-21 03:10 | ED.RN ---
FRIEND CAME TO [facility] PT. SHE AMBULATED TO LOBBY WITH A STEADY AND INDEPENDENT GAIT.
== END 2019-05-21 03:09 | disposition home or self-care (01) ==
PROVIDERS: Emergency Provider Emergency Medicine
DX: F19.10 Other psychoactive substance abuse, uncomplicated (principal); E87.6 Hypokalemia; R00.0 Tachycardia, unspecified; R06.82 Tachypnea, not elsewhere classified; R00.2 Palpitations; F17.200 Nicotine dependence, unspecified, uncomplicated; Z91.040 Latex allergy status
CPT/HCPCS: 70450; 71046; 80048; 84484; 85025; 93005; 96374; 99285; A4216

== ENCOUNTER 2019-12-21 01:55 | Emergency (ER) | payer SELFPAY ==
[2019-12-21 01:57] VITALS: BP 147/108; PULSE 85; RESP 18; TEMP 36.4; O2SAT 98; BMI 28.4
--- NOTE | 2019-12-21 02:21 | ED.VISSUMM ---
- ER Visit Summary Date of Service: 12/21/19 Chief Complaint: [Drug overdose] History of Present Illness: The patient is a 34 F [is to the emergency department with a drug overdose that occurred this evening. Patient thinks she was at her home. She is not sure who called EMS for her. EMS was called to the home by an individual who stated that patient had overdosed and he had given her 1 dose of Narcan. Patient was awake on EMS arrival complaining of feeling cold. She believes that they try to splash cold water on her to wake her up. Patient has history of drug abuse including heroin and methamphetamines. She denies feeling suicidal or homicidal. She does complain of a headache. She denies chest pain or abdominal pain. She denies shortness of breath. She has history of hep C.] Physical Examination: [HEENT-PERRLA, EOMI. Cranial nerves II through XII grossly intact. TMs clear. Mucous membranes moist. No adenopathy. No external evidence of trauma to her head. She has no C-spine tenderness on palpation. Cardiovascular-regular rate and rhythm without murmur or ectopy Lungs-clear to auscultation, chest wall stable without crepitus or subcu emphysema Abdomen-normoactive bowel sounds, soft, nontender, no rebound or rigidity, no peritoneal signs. Extremities-intact ?4, normal range of motion, normal pulses, atraumatic] Test Results: [None indicated] Emergency Department Course and Treatment: [Patient was placed on a hard rock miner and she was observed in the department for over an hour and a half. She had no further issues or complaints. On repeat examination at 3:25 AM she has no complaints. She is appropriate. Exam is normal.] Treatment Plan: [Patient will be referred to counseling center in 180 should she want to get help for her illicit drug use. She is advised to discontinue her illicit drug use.] Disposition: [Discharged home in stable condition] Impression: [Opiate overdose Illicit drug use] This note was generated with File[employer] dictation software. It may contain incorrect words, spelling, and punctuation that were not noted in review of the chart prior to signing ED Disposition - Plan for ED Patient: Referrals: Care Physician,No Primary [Primary Care Provider] -
[2019-12-21 03:05] VITALS: BP 114/85; PULSE 94; RESP 14; O2SAT 100
--- NOTE | 2019-12-21 03:25 | ED.DEP ---
ED Disposition - Plan for ED Patient: Instructions: ED Overdose Opiate Referrals: Care Physician,No Primary [Primary Care Provider] - Counseling,Center [GROUP OF PHYSICIANS] - 3-5 Days
[2019-12-21 03:32] VITALS: BP 119/84; PULSE 112; RESP 15; O2SAT 98
== END 2019-12-21 03:32 | disposition home or self-care (01) ==
PROVIDERS: Emergency Provider Emergency Medicine
DX: T40.1X1A Poisoning by heroin, accidental (unintentional), initial encounter (principal); Y92.009 Unspecified place in unspecified non-institutional (private) residence as the place of occurrence of the external cause; F11.10 Opioid abuse, uncomplicated; F15.10 Other stimulant abuse, uncomplicated; B19.20 Unspecified viral hepatitis C without hepatic coma; Z72.0 Tobacco use
CPT/HCPCS: 99284

== ENCOUNTER 2020-03-02 06:07 | Emergency (ER) | payer SELFPAY ==
[2020-03-02 06:08] VITALS: BP 131/83; PULSE 94; RESP 17; TEMP 36.8; O2SAT 95; BMI 27.1
--- NOTE | 2020-03-02 06:19 | EKG12_ITS ---
Test Reason : OVERDOSE Blood Pressure : / mmHG Vent. Rate : 086 BPM Atrial Rate : 086 BPM P-R Int : 174 ms QRS Dur : 112 ms QT Int : 384 ms P-R-T Axes : 068 008 049 degrees QTc Int : 459 ms Normal sinus rhythm Normal ECG Confirmed by MALLY MEIER ([id number]), editor news DILLAN JOVEL ([id number]) on 03/04/2020 7:40:58 AM Referred By: JEAN Confirmed By:MALLY MEIER
--- NOTE | 2020-03-02 06:19 | RAD_ITS ---
HISTORY: OVERDOSE PATIENT'S FRIENDS GAVE PATIENT CPR WHILE PATIENT HAD A PULSE EMESIS AFTER NARCAN ADDITIONAL HISTORY: None provided. TECHNIQUE: Frontal chest radiograph. Number of images including paperwork: 1 COMPARISON: 05/21/2019 FINDINGS: LUNGS AND PLEURA: No consolidation, mass or pleural effusion. CARDIAC SILHOUETTE: Unremarkable. MEDIASTINUM AND GREGORIA: Unremarkable. UPPER ABDOMEN: Unremarkable. SKELETON AND SOFT TISSUES: No acute findings. OTHER DEVICES AND HARDWARE: None. RAD/Chest 1 View (Portable) IMPRESSION: No acute cardiopulmonary abnormality. at 0702 Reported and signed by: Ivelisse Gu MD Electronically Signed: Ivelisse Gu MD at 7:02 EDT Tel , Service support ,
--- NOTE | 2020-03-02 06:23 | ED.DCSUM_ITS ---
- ER Visit Summary Date of Service: 03/02/20 Chief Complaint: IV drug overdose History of Present Illness: The patient is a 34 F history of drug abuse. Patient states this is happened to her before. She was using an IV opiate tonight suspected heroin but she says she does not know exactly what she shot up . She became unconscious. Bystanders did CPR. Paramedics were called. When they arrived patient had a pulse. They gave her 2 dosages of Narcan and she regained consciousness. Physical Examination: Young female no acute distress vital signs stable afebrile. Initial blood pressure 131/83. Pulse ox 95% on room air. She is in no distress. She is resting comfortably. She denies any complaints. H EENT exam unremarkable. Pupils round reactive light. No signs of trauma. She has a tongue piercing. Neck nontender. No JVD. No lymphadenopathy. Lungs clear to auscultation bilaterally. Heart regular rate and rhythm no murmur rate about 90. Chest wall nontender. No ecchymosis or bruising. No subcu air or crepitance. No sternal tenderness. Abdomen soft nontender normal bowel sounds no peritoneal signs. Nondistended. Pelvic girdle intact. Extremities moves all 4. Calves nontender without edema or cords. Back nontender. Neurologically she is awake and alert. She is answering questions and following commands. She has no focal motor deficits. Test Results: EKG shows normal sinus rhythm rate of 86 no acute signs of AR, ischemia nor dysrhythmia. Portable chest x-ray 1 view read by myself shows no acute abnormality. No rib fractures. No pneumothorax. Normal cardiac silhouette. Emergency Department Course and Treatment: Patient is an apparent IV opioid (suspected heroin) overdose. She was treated with Narcan at the scene by paramedics. She was given bystander CPR that is the reason I am checking an EKG and chest x-ray but clinically she has normal cardiac rhythm and her chest wall is nontender. Repeat exam at 7:12 AM patient is doing well. She will be written for discha shane. Treatment Plan: Follow-up with 180. Return if feeling worse. Disposition: Discharge Impression: Acute IV opiate overdose History of drug abuse This note was generated with [employer] software. It may contain incorrect words, spelling, and punctuation that were not noted in review of the chart prior to signing ED Disposition - Plan for ED Patient: Disposition: Home or Assisted Living Instructions: ED Overdose Opiate Referrals: Kendell Noe MD [NON-STAFF] - As Needed [facility] [STAFF PHYSICIAN] - As soon as possible Additional Instructions: Follow-up with the drug counseling treatment center [facility].
--- NOTE | 2020-03-02 06:26 | ED.DEP ---
ED Disposition - Plan for ED Patient: Disposition: Home or Assisted Living Instructions: ED Overdose Opiate Referrals: Kendell Noe MD [NON-STAFF] - As Needed [facility] [STAFF PHYSICIAN] - As soon as possible Additional Instructions: Follow-up with the drug counseling treatment center [facility].
[2020-03-02 08:01] VITALS: BP 122/85; PULSE 85; RESP 20; O2SAT 97
== END 2020-03-02 08:02 | disposition home or self-care (01) ==
LOC: ED 07:03
PROVIDERS: Emergency Provider Emergency Medicine
DX: T40.601A Poisoning by unspecified narcotics, accidental (unintentional), initial encounter (principal); Y92.9 Unspecified place or not applicable; Z72.0 Tobacco use
CPT/HCPCS: 71045; 93005; 99284

== ENCOUNTER 2020-04-10 09:22 | Emergency (ER) | payer SELFPAY ==
[2020-03-24 10:40] VITALS: BMI 27.0
[2020-04-10 09:23] VITALS: BP 109/62; PULSE 99; RESP 24; TEMP 37.3; O2SAT 97; BMI 27.3
--- NOTE | 2020-04-10 09:36 | ED.VISSUMM ---
- ER Visit Summary Date of Service: 04/10/20 Chief Complaint: [Drug overdose] History of Present Illness: The patient is a 34 F [presents to the emergency department via EMS. Patient admits to using heroin today. She is not sure who called the squad for her. Apparently patient overdosed and people that were with her started doing CPR and somebody gave her Narcan. On EMS arrival they gave her another dose of intranasal Narcan. Patient on arrival denies any complaints. She denies any recent illness. She tells me she has no medical history. She has overdosed before. She does state that she uses heroin frequently.] Patient denies intentional overdose and denies being suicidal or depressed. Physical Examination: [HEENT-PERRLA, EOMI. Cranial nerves II through XII grossly intact. TMs clear. Mucous membranes moist. No adenopathy. Patient somewhat somnolent however awakens easily and answers questions appropriately. Cardiovascular-regular rate and rhythm without murmur or ectopy Lungs-clear to auscultation, chest wall stable without crepitus or subcu emphysema Abdomen-normoactive bowel sounds, soft, nontender, no rebound or rigidity, no peritoneal signs. Extremities-intact ?4, normal range of motion, normal pulses, atraumatic] Test Results: [None indicated] Emergency Department Course and Treatment: [Patient was placed on a director of cardiac rehabilitation on arrival. An IV line was established. Patient was observed in the department for 2 hours and she had no further symptoms. She easily arouses and follows commands appropriately. She has no complaints.] Treatment Plan: [Follow-up with primary care physician telephone sales representative for no doc. Patient referred to [facility] for follow[facility].] Disposition: [Discharged home in stable condition] Impression: [Accidental drug overdose with heroin] This note was generated with ev-social dictation software. It may contain incorrect words, spelling, and punctuation that were not noted in review of the chart prior to signing ED Disposition - Plan for ED Patient: Referrals: Care Physician,No Primary [Primary Care Provider] -
[2020-04-10 10:53] VITALS: BP 94/53; PULSE 91; RESP 18; O2SAT 96
--- NOTE | 2020-04-10 11:12 | ED.DEP ---
ED Disposition - Plan for ED Patient: Instructions: ED Abuse Narcotic, ED Overdose Opiate Referrals: Care Physician,No Primary [Primary Care Provider] - Zay Hernandez III, MD [STAFF PHYSICIAN] - 3-5 Days Additional Instructions: Follow up with 180 for help with addiction
[2020-04-10 11:22] VITALS: BP 104/60; PULSE 94; RESP 16; O2SAT 95
== END 2020-04-10 11:26 | disposition home or self-care (01) ==
PROVIDERS: Emergency Provider Emergency Medicine
DX: T40.1X1A Poisoning by heroin, accidental (unintentional), initial encounter (principal); F11.90 Opioid use, unspecified, uncomplicated; Y92.9 Unspecified place or not applicable; Z72.0 Tobacco use
CPT/HCPCS: 99284; A4216

== ENCOUNTER 2020-07-01 02:09 | Emergency (ER) | payer MEDICAID, SELFPAY ==
[2020-06-15 11:20] VITALS: BMI 24.0
[2020-07-01 02:09] VITALS: BP 119/91; PULSE 88; RESP 16; TEMP 36.6; O2SAT 100; BMI 29.9
--- NOTE | 2020-07-01 02:16 | ED.VIS.GEN ---
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 She was using fentanyl tonight. She has recently been in [place] [facility] and states she should not abuse as much as she did tonight. EMS did give 3 rounds of intranasal Narcan. On arrival to the ER patient is awake and alert with normal vital signs. - Past Medical History (1) Drug abuse Status: Chronic Past Medical History - Allergies and Home Meds Allergies/Adverse Reactions: Allergies latex Allergy (Verified 06/15/20 11:20) Rash Primary Care Physician: Care Physician,No Primary [Primary Care Provider] - Prior records reviewed: Yes Smoking Status: Current every day smoker Drugs: - - Fentanyl Review of Systems General: Denies: Chills, Fever Eyes: Denies: Visual changes - bilaterally ENT: Denies: Bilateral ear pain Cardiovascular: Denies: Chest pain, Palpitations Respiratory: Denies: Dyspnea Gastrointestinal: Denies: Abdominal pain, Nausea, Vomiting Musculoskeletal: Denies: Extremity Pain Skin: Denies: Rash Neurological: Denies: Headache Hematologic: Denies: Easy bruising, Easy bleeding Allergy: Denies: Uticaria Physical Exam Vital Signs/Narrative: Vital Signs Temp Pulse Resp BP Pulse Ox 07/01/20 02:09 97.9 F 88 16 119/91 H 100 Inital Vital Signs reviewed: Yes General: Well nourished, Well developed Head: Normocephalic ENT: Moist mucous membranes Neck: Supple Cardiovascular: Regular rate, Regular rhythm Respiratory: No distress, CTA bilaterally Abdomen: Soft, Nontender Skin: Normal color Neurological: Alert, Oriented x3 Psychological: Normal affect Diagnostic/Tx/Re-eval - Medical Decision Making Patient was observed on rooming house keeper for 2 hours. She has been awake and alert throughout her ED stay. She will be given information for 180 for follow-up as she is requesting help with detox. She states that regardless of her desire to quit she knows she is always been around people who are using and is requesting Narcan to carry with her as well. This prescription will be sent to the pharmacy for her. ED Disposition - Plan for ED Patient: Disposition: Home or Assisted Living Diagnosis: Opioid overdose Instructions: ED Overdose Opiate Prescriptions: Naloxone HCl [Narcan] 4 mg NS Q10M PRN PRN #1 bottle PRN Reason: Narcotic Induced Breathing Dif Transmission Status: Pending to [id number] Referrals: [facility] [STAFF PHYSICIAN] - As soon as possible
[2020-07-01] MEDS: Ibuprofen 600 MG Tablet PO (02:30)
[2020-07-01 04:04] VITALS: BP 104/72; PULSE 72; RESP 16; O2SAT 98
--- NOTE | 2020-07-01 04:12 | ED.RN ---
SNACK AND PAPER SHIRT GIVEN.
== END 2020-07-01 04:13 | disposition home or self-care (01) ==
PROVIDERS: Emergency Provider Emergency Medicine
DX: T40.2X1A Poisoning by other opioids, accidental (unintentional), initial encounter (principal); F17.200 Nicotine dependence, unspecified, uncomplicated
CPT/HCPCS: 99285

== ENCOUNTER 2020-07-09 10:16 | Emergency (ER) | payer MEDICAID, SELFPAY ==
[2020-07-09 10:18] VITALS: BP 123/84; PULSE 94; RESP 16; TEMP 36.4; O2SAT 100; BMI 29.3
--- NOTE | 2020-07-09 10:25 | ED.DCSUM_ITS ---
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 She was using fentanyl. EMS gave 4mg intranasal Narcan. She states she is feeling fine here and has no complaints of pain. <Mary Boggs - Last Filed: 07/09/20 11:51> <KoleDallin - Last Filed: 07/09/20 11:53> Chief Complaint: Overdose Past Medical History Past Medical History: None Smoking Status: Current every day smoker <Mary Boggs - Last Filed: 07/09/20 11:51> <KoleDallin - Last Filed: 07/09/20 11:53> - Allergies and Home Meds Allergies/Adverse Reactions: Allergies latex Allergy (Verified 07/09/20 10:24) Rash Primary Care Physician: Care Physician,No Primary [Primary Care Provider] - Review of Systems General: Denies: Fever Eyes: Denies: Visual changes - left Cardiovascular: Denies: Chest pain, Palpitations Respiratory: Denies: Dyspnea Gastrointestinal: Denies: Abdominal pain, Nausea, Vomiting Neurological: Denies: Headache, Weakness <Mary Boggs - Last Filed: 07/09/20 11:51> Physical Exam Vital Signs/Narrative: Vital Signs Temp Pulse Resp BP Pulse Ox 07/09/20 10:18 97.6 F L 94 16 123/84 H 100 General: Well nourished, Well developed, No Acute Distress Head: Normocephalic, Atraumatic Eyes: Perrl, EOMI ENT: Moist mucous membranes, No rhinorrhea Cardiovascular: Regular rate, Regular rhythm, No murmurs Respiratory: No distress, CTA bilaterally, Chest nontender Skin: Normal color, No rash Neurological: Alert, Oriented x3, Cranial nerves II-XII grossly intact, Normal Strength, Normal Sensation Psychological: Normal affect, Normal Mood <Mary Boggs - Last Filed: 07/09/20 11:51> Vital Signs/Narrative: Vital Signs Temp Pulse Resp BP Pulse Ox 07/09/20 10:18 97.6 F L 94 16 123/84 H 100 <KoleDallin - Last Filed: 07/09/20 11:53> Diagnostic/Tx/Re-eval - Medical Decision Making Patient presented after an overdose on fentanyl. She was given 4 mg of intranasal Narcan by EMS. On arrival to the ED patient is awake and alert with normal vital signs. She was observed on threat monitoring analyst for 1.5 hours. She has been awake and alert throughout her stay with normal vital signs. She was given a prescription for Narcan and already has contact information for 180 for detox. She was agreeable with this plan and discharged home in stable condition. <Mary Boggs - Last Filed: 07/09/20 11:51> - Medical Decision Making I supervised the PA and have performed my own pertinent history and physical. Results and treatment plan were discussed. HPI: Patient reports that she snorted fentanyl today. She does not want help with her drug addiction. She does have a history of IV drug abuse. PE: Vitals: Stable. Afebrile. General: Well-nourished and well-developed. Head: Normocephalic atraumatic. Neck: Supple, no lymphadenopathy. No JVD. Nontender. Cardiovascular: Regular rate and rhythm. No murmurs. Respiratory: No respiratory distress. Clear to auscultation bilaterally. Abdominal: Soft, nontender, nondistended, normal bowel sounds. No guarding, rebound, or peritoneal signs. Back: Nontender. Extremities: Nontender, no edema. Track johnson on the right forearm that do not appear infected. Skin: Normal color, no rash. Neurologic: Alert and oriented ?3. Cranial nerves II through XII are intact. Normal strength and sensation. Psych: Normal affect. Emergency Department course: Patient received Narcan prior to arrival. She observed over the course of an hour and a half and did not become unresponsive again. Treatment Plan: Patient be discharged instructions to follow-up in 180 soon as possible. Return to the emergency department for any worsening symptoms. This note was generated with [employer] dictation software. It may contain incorrect words, spelling, and punctuation that were not noted in review of the chart prior to signing. <Dallin Sharif - Last Filed: 07/09/20 11:53> ED Disposition <Mary Boggs - Last Filed: 07/09/20 11:51> <Dallin Sharif - Last Filed: 07/09/20 11:53> - Plan for ED Patient: Disposition: Home or Assisted Living Diagnosis: Overdose opiate Instructions: ED Overdose Opiate Prescriptions: Naloxone HCl [Narcan] 4 mg NS PRN PRN #1 spray PRN Reason: Narcotic Induced Breathing Dif Prescription Printed Referrals: Care Physician,No Primary [Primary Care Provider] -
[2020-07-09 12:08] VITALS: BP 110/82; PULSE 87; RESP 15; O2SAT 98
== END 2020-07-09 12:10 | disposition home or self-care (01) ==
LOC: ED 10:51
PROVIDERS: Emergency Provider Physician Assistant
CPT/HCPCS: 99283; 99285; J7030

== ENCOUNTER 2021-01-12 20:50 | Emergency (ER) | payer MEDICAID, SELFPAY ==
[2021-01-12 20:51] VITALS: BP 136/71; PULSE 87; RESP 18; TEMP 36.8; O2SAT 99
--- NOTE | 2021-01-12 21:51 | RAD_ITS ---
STUDY: X-RAY CHEST REASON FOR EXAM: Female, 35 years old. cough TECHNIQUE: Single AP portable view of the chest. COMPARISON: 03/02/2020. FINDINGS: The lungs are clear and expanded. There is no demonstrated pleural abnormality. Normal size heart. Normal mediastinum and shayla. Normal visualized pulmonary arteries. Normal visualized aortic arch and descending thoracic aorta. Normal visualized thoracic spine. Normal visualized ribs, clavicles, and shoulders. There is no demonstrated abnormality of the visualized soft tissue structures of the upper abdomen. RAD/Chest 1 View (Portable) IMPRESSION: Normal x-ray examination of the chest. Electronically Signed: Xochitl Duncan MD at 22:17 EDT Tel , Service support ,
--- NOTE | 2021-01-12 23:02 | ED.VIS.URI ---
History of Present Illness Chief Complaint: Cough Narrative: Patient presenting for upper respiratory type symptoms. Patient states that she has been ill over the course about the last 2 days. Its been associated with a sore throat rhinorrhea and a mild cough, she denies any fevers. She does report she had some mild nausea but no vomiting. No diarrhea. Patient was concerned because she lives in a sober house and the director of the sober house was admitted for bilateral pneumonia, and she was recommended to come to the emergency department. Patient has no other underlying medical issues, she has been sober for about a month, she denies any history of lung disease she does smoke. View of systems otherwise negative. Past Medical History - Allergies and Home Meds Allergies/Adverse Reactions: Allergies latex Allergy (Verified 01/12/21 20:53) Rash Primary Care Physician: Care Physician,No Primary [Primary Care Provider] - Prior records reviewed: Yes Past Medical History: None Smoking Status: Current every day smoker Alcohol: None Drugs: - - Currently sober Review of Systems All systems negative except as indicated General: Denies: Chills, Fever, Sweats Eyes: Denies: Visual changes - bilaterally, Diplopia ENT: Reports: Rhinorrhea, Sore throat Cardiovascular: Denies: Chest pain, Palpitations Respiratory: Reports: Cough Gastrointestinal: Denies: Abdominal pain, Nausea, Vomiting, Diarrhea, Melena, Hematochezia Genitourinary: Denies: Dysuria, Hematuria, Frequency Musculoskeletal: Denies: Back pain, Extremity Pain Skin: Denies: Rash, Wounds Neurological: Denies: Headache, Weakness, Numbness Physical Exam Vital Signs/Narrative: Vital Signs Temp Pulse Resp BP Pulse Ox 01/12/21 20:51 98.3 F 87 18 136/71 H 99 Inital Vital Signs reviewed: Yes General: Well nourished, Well developed Head: Normocephalic, Atraumatic Eyes: Perrl, EOMI Ears: Normal external canal, TM's clear Nose: Normal Inspection, No Rhinorrhea Mouth/Throat: Normal Inspection, No Posterior Erythema Neck: Supple, Nontender Cardiovascular: Regular rate, Regular rhythm, No murmurs Respiratory: No distress, CTA bilaterally, Chest nontender Abdomen: Soft, Nontender, Nondistended, Normal bowel sounds Back: Nontender, Normal Inspection Extremities: Nontender, No edema Skin: Normal color, No rash Neurological: Alert, Oriented x3, Cranial nerves II-XII grossly intact, Normal Strength, Normal Sensation Psychological: Normal affect Diagnostic/Tx/Re-eval Chest X-Ray - ED: 1 View, Read by ED Physician, Normal - Medical Decision Making Patient presented secondary to upper respiratory symptoms. Due to the history of exposure to someone with bilateral pneumonia chest x-ray was obtained and by my personal review was found to be negative. Coronavirus test found to be negative. Patient has a viral upper respiratory infection, is well-appearing she was recommended [id number] cold usage. Patient was discharged in stable condition. ED Disposition - Plan for ED Patient: Disposition: Home or Assisted Living Diagnosis: Upper respiratory tract infection Instructions: ED URI, Viral, No Abx (Adult) Referrals: Madiha Butts [NON-STAFF] - As Needed
== END 2021-01-12 23:15 | disposition home or self-care (01) ==
PROVIDERS: Emergency Provider Emergency Medicine
DX: J06.9 Acute upper respiratory infection, unspecified (principal); F17.200 Nicotine dependence, unspecified, uncomplicated
CPT/HCPCS: 71045; 87426; 99282

== ENCOUNTER → 2021-07-14 11:14 | Outpatient (CLI) | payer MEDICAID, SELFPAY ==
[2021-07-14 13:40] LABS: Hematocrit 37.8 % (37-47); Hemoglobin 12.4 g/dL (12.0-15.0); Mean Corp Hgb Conc 32.8 g/dL (32-36); Mean Corpuscular Hgb 27.4 pg (27.0-32.0); Mean Corpuscular Volume 83.6 fL (81-99); Mean Platelet Vol. 10.3 fl (6.2-12.0); Platelet Count 239 K/mm3 (150-450); RBC Distribution Width CV 15.4 % (11.6-14.6); RBC Distribution Width SD 47.1 fl (35.1-43.9); Red Blood Count 4.52 M/mm3 (4.2-5.4); White Blood Count 4.7 K/mm3 (4.4-11.0)
[2021-07-14 14:42] LABS: Estradiol 238.3 pg/mL; Follicle Stimulating Hormone 3.2 mIU/mL; Luteinizing Hormone 9.3 mIU/mL; Prolactin 15.4 ng/mL; Thyroid Stim Hormone (TSH) 1.19 uIU/mL (0.358-3.74)
[2021-07-17 10:07] LABS: Chlamydia By Nucleic Acid AMP Negative (Negative); Gonococcus By Nucleic Acid AMP Negative (Negative)
[2021-07-17 13:31] LABS: Testosterone Free 0.9 pg/mL (0.0-4.2)
[2021-07-19 08:31] LABS: HPV APTIMA, High Risk Negative (Negative)
[2021-07-26 12:53] LABS: 17-Hydroxyprogesterone 61 ng/dL (.)
== END ==
PROVIDERS: Visit Provider Obstetrics & Gynecology
DX: N92.6 Irregular menstruation, unspecified (principal); Z12.4 Encounter for screening for malignant neoplasm of cervix; Z11.3 Encounter for screening for infections with a predominantly sexual mode of transmission
CPT/HCPCS: 36415; 82627; 82670; 83001; 83002; 83498; 84146; 84402; 84443; 85027; 87491; 87591; 87624; 88175; 82626; G0145

== ENCOUNTER 2021-08-29 07:11 | Day surgery (SDC) | payer MEDICAID, SELFPAY ==
[2021-08-26 15:32] LABS: Hematocrit 39.1 % (37-47); Hemoglobin 12.7 g/dL (12.0-15.0); Mean Corp Hgb Conc 32.5 g/dL (32-36); Mean Corpuscular Hgb 27.1 pg (27.0-32.0); Mean Corpuscular Volume 83.4 fL (81-99); Mean Platelet Vol. 10.2 fl (6.2-12.0); Platelet Count 287 K/mm3 (150-450); RBC Distribution Width CV 14.6 % (11.6-14.6); RBC Distribution Width SD 43.8 fl (35.1-43.9); Red Blood Count 4.69 M/mm3 (4.2-5.4); White Blood Count 6.8 K/mm3 (4.4-11.0)
[2021-08-29] VITALS (9 sets, daily range): BP systolic 78–96; BP diastolic 41–66; PULSE 47–62; RESP 14–18; TEMP 36.3–36.8; O2SAT 94–100; BMI 34.2
--- NOTE | 2021-08-29 | EMB_PTH ---
PATIENT: DILLAN SHAW LOC: [facility] [place] U#:[id number] AGE/SX: 36/F ROOM: RE08/29/[address]: Dr. Jaxon Caceres MD : 1985 BED: DIS: 08/29/2021 SPEC #: [id number] RECD: 08/29/21 10:10 STATUS: NAY LILIANE #: [id number] JESUS ALBERTO: 08/29/21 00:[address]: Jaxon Caceres DEPT: SURGICAL PATHOLOGY RECD BY: Troy Gonzalez ENTERED: 08/29/21 12:52 SP TYPE: ENDOM BX/C TONA DR: No Primary Care Phys Tissues: Endometrium, NOS Procedures: Surgery Specimen Level IV HEADER OPERATION: Hysteroscopy, D & C Karey PRE-OP DIAGNOSIS: Abnormal uterine bleeding TISSUE SUBMITTED: Endometrial curettings MICROSCOPIC DIAGNOSIS Endometrial curettings: Dyssynchronous endometrium consisting of proliferative and weakly secretory endometrium with glandular and stromal breakdown. See comment. SJ:michoacano 08/30/2021 COMMENT Clinical correlation and appropriate follow up are necessary. MICROSCOPIC DESCRIPTION Slides are reviewed. GROSS DESCRIPTION Received in fixative is one container labeled with the patient's name and designated endometrial curettings. The specimen consists of multiple fragments of hemorrhagic soft tissue mixed with mucoid tissue that in aggregate measure 3 x 2.5 x 0.3 cm. The specimen is totally submitted in one cassette. / JOSE L:michoacano 08/29/21 TC:5 CPT: 50135
--- NOTE | 2021-08-29 07:32 | PCM.HP.BLA ---
History and Physical Date of Admission: 08/29/21 Surgical History and Physical Date: 08/29/2021 Name: DILLAN HERNANDEZ Age: 36 Date of : 1985 Dillan Hernandez, a 36 year old female 2 1 0 1 3, presents for Hysteroscopy D, Karey ablation on August 29, 2021 at . -- Patient scheduled for hysteroscopy, D+C, and Karey on August 29, 2021. No concerns expressed at this time.. Consents reviewed and signed. MEDICATIONS HISTORY: Current medications prescribed by our practice are: 1. + DHA 28 mg iron- 975 mcg-200 mg combo pack, daily ALLERGIES: Latex sensitivity, Itchy skin--no breathing probs, Latex, Rash and itching Infections - Hepatitis C Illnesses - none Accidents - no injuries of consequence Hospitalizations - Childbirth and surgery by , labor and HX abnormal paps; Review of Systems: GENERAL - fatigue SKIN - Denies skin changes EYES - Denies visual changes EARS - Denies difficulty hearing NOSE - Denies nasal congestion or bleeding MOUTH - Denies sore throat or difficulty swallowing NECK - Denies pain or swelling RESPIRATORY - Denies shortness of breath or wheezing CARDIOVASCULAR - Denies palpitations or chest pain GASTROINTESTINAL - Denies nausea, vomiting, diarrhea, constipation GENITOURINARY - Irregular bleeding, heavy bleeding, cramping increased MUSCULOSKELETAL - Denies joint or muscle pain NEUROLOGICAL - Denies localized numbness or weakness PSYCHIATRIC - Denies depression or anxiety ENDOCRINE - Denies heat or cold intolerance, weight loss or gain HEMATO-IMMUNOLOGIC - easy bruising SOCIAL HISTORY: Alcohol Use - denies drinking Smoking - Uses Vapor Pen Diet - balanced Diet Lifestyle - low stress lifestyle and Exercise - regular and walking Seat Belt Use - always Employer - Unemployed 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 MENSTRUAL HISTORY: LMP Known?- Approximate-Month KnownAmount/Duration - 7+, Regularity - Irregular, Frequency - variable days, LMP - 08/24/21, Age Onset Menarche - 12 PAST PREGNANCIES: Total Pregnancies - 3; Full Term Pregnancies - 2; Premature - 1; Abortions, Induced - 0; Abortions, Spontaneous - 0; Ectopics - 0; Multiple Births - 1; Living Children - 3 SURGICAL HISTORY: 1. 09/08/2008 ; Al Rm C/S 2. 12/02/2006 ; Madi - cedphalopelvic disproportion 3. 06/07/2011 ; - PHYSICAL EXAM BP- 122/64 Sitting, Right arm, large cuff Weight- 205.71202 lbs Height- 64.50 inch BMI:[id number] CONSTITUTIONAL - NAD, well nourished, and well developed SKIN - No rash, lesions, or ulcers HEENT - Normocephalic, PERRLA, EOMI NECK - No nodes, no nuchal rigidity and thyroid normal size and texture LYMPH NODES - Palpation of lymph nodes in neck and groins within normal limits EXTREMITIES - No edema or calf tenderness NEUROLOGICAL - Cranial nerves II-XII grossly intact PSYCHIATRIC - A and O to time, place, person, mood and affect External Genital Vagina - non-tender without lesions Urethra/Urethral Meatus - non-tender Bladder - non-tender Vagina - vaginal lomax are pink and moist without loss of rugae and no evidence of atrophy Cervix - without cervical motion tenderness and has normal size and features without evident lesions Uterus - 5-6 cm in size, mobile and nontender Adnexa - clear without masses or tenderness ASSESSMENT/PLAN: 1. Abnormal Uterine And Vaginal Bleeding, Unspecified Patient arrives with abnormal uterine bleeding. Patient has multiple periods and long periods with heavy bleeding within the same month. This has been very debilitating Ultrasound with 11.5 cm retroverted uterus, within normal limits. Labs within normal limits. 2. Encounter For Other Preprocedural Examination Pt for hysteroscopy Fahad Eden Educated pt on procedure r/b/a. Discussed postoperative recovery, including pain Pt on no medications, no medical changes, no issues with anesthesia follow up 2 weeks postoperatively
[2021-08-29 07:50] LABS: Internal QC Validated? YES +Cl - CLEAR BKGD; Pregnancy, Urine Negative Negative
[2021-08-29] MEDS: Lactated Ringers 1,000 ML 15 ML IV (08:10)
--- NOTE | 2021-08-29 09:28 | PCM.DC ---
Discharge Instructions Diet Discharge Diet: No restrictions Activity Discharge Activity: Return to Normal Activity, May Drive and May Shower May resume sexual activity in: 4-6 weeks Weight Bearing Status: Weight bearing as tolerated Dressing / Incision Call your doctor if your incision/area has: Continuous Slow Oozing and Foul Smelling Discharge Call your doctor if you observe: Fever of 101 or Higher, Shortness of breath and Chest pain Follow Up Care Please Follow Up With: Jaxon Caceres MD When: 2 weeks postoperatively Test Results: Test results from this visit will be discussed in further detail at your follow-up appointment, if applicable. Discharge Plan Admission Attending Provider: Jaxon Caceres Primary Care Provider: Care Physician,Tammie Primary Discharge Orders/Prescriptions Prescriptions: No Action NK RF: 0 Referrals / Follow Up: Care Physician,No Primary [Primary Care Provider] - Disposition Disposition (needs filled in before D/C Order can be placed): Home, Self Care
--- NOTE | 2021-08-29 09:30 | OP.PCM_ITS ---
Report of Operation Date of Procedure: 08/29/21 Pre-Operative Diagnosis: Abnormal uterine bleeding Post-Operative Diagnosis: Abnormal uterine bleeding Surgery/Procedure Performed:: Hysteroscopy, dilation curettage, endometrial ablation via Karey Description of Surgical Findings:: Surgeon: Jaxon Caceres MD Anesthesia: MAC EBL: 5 cc Urine output: 20 cc IV fluids: 800 cc Complications: None Specimen: Endometrial curettings Findings: Hysteroscopy revealed no new pathology. Post procedure hysteroscopy revealed no pathology. Karey endometrial ablation device set to cavity length 6 cm. Consent: Patient with abnormal uterine bleeding for hysteroscopy dilation and curettage endometrial ablation via Karey. Patient understands the risk of the procedure include but are not limited to visceral or vascular injury, prolonged hospi talization, blood loss and need for transfusion, reoperation. Patient stated understanding and wished to proceed. All questions were answered and consent was signed. Procedure: Patient was brought back to the OR where MAC anesthesia was found to be adequate. Patient was prepared and draped in a dorsal lithotomy position with yellowfin stirrups. A weighted speculum was placed in the posterior aspect of the vagina. Cervical dilators were used to dilate the cervix. Hysteroscope was inserted and above findings were noted. Cavity length was found to be 6 cm. Sharp endometrial curettings were obtained and sent to pathology. Karey endometrial device was inserted under direct visualization. Karey safety test x2 were passed. 120 second endometrial ablation performed. Karey was removed under direct visualization. Post procedure hysteroscopy was performed and above findings were noted. Good hemostasis was noted. All counts were correct x2. Patient tolerated the procedure well and was brought to recovery in stable condition.
[2021-08-29] MEDS: Acetaminophen 500 MG Tablet 1000 MG PO (10:30)
== END 2021-08-29 11:18 | disposition home or self-care (01) ==
LOC: SDC 07:12 → AC 07:13
PROVIDERS: Anesthesiology; Referring Provider Obstetrics & Gynecology; Visit Provider Obstetrics & Gynecology
PROC: 0U5B8ZZ Destruction of Endometrium, Via Natural or Artificial Opening Endoscopic (ICD-10-PCS; CPT 58558; principal; 2021-08-29 08:30)
DX: N93.9 Abnormal uterine and vaginal bleeding, unspecified (principal); Z20.822 Contact with and (suspected) exposure to COVID-19; F17.290 Nicotine dependence, other tobacco product, uncomplicated
CPT/HCPCS: 58563; 36415; 81025; 85027; 86850; 86900; 86901; 87426; 88305; C9803; J7120; J2405

== ENCOUNTER 2021-12-29 07:02 | Day surgery (SDC) | payer MEDICAID, SELFPAY ==
[2021-12-26 11:23] LABS: Hematocrit 40.6 % (37-47); Hemoglobin 13.8 g/dL (12.0-15.0); Mean Corpuscular Hgb 28.3 pg (27.0-32.0); Mean Corpuscular Volume 83.4 fL (81-99); Mean Platelet Vol. 9.5 fl (6.2-12.0); Platelet Count 255 K/mm3 (150-450); RBC Distribution Width CV 13.6 % (11.6-14.6); RBC Distribution Width SD 41.3 fl (35.1-43.9); Red Blood Count 4.87 M/mm3 (4.2-5.4)
[2021-12-26 12:04] LABS: AST(SGOT) 50 U/L (15-37); Alanine Aminotransfer ALT/SGPT 88 U/L (13-56); Albumin, Serum 3.6 g/dL (3.2-5.0); Alkaline Phosphatase 52 U/L (45-117); Globulin 3.9 g/dL (2.2-4.2); Magnesium 2.1 mg/dL (1.6-2.6); Protein, Total 7.5 g/dL (6.4-8.2)
[2021-12-29] VITALS (11 sets, daily range): BP systolic 80–117; BP diastolic 42–71; PULSE 59–83; RESP 14–16; TEMP 35.8–37.5; O2SAT 98–100; BMI 36.1
--- NOTE | 2021-12-29 | HYST_PTH ---
PATIENT: DILLAN SHAW [place] [facility] [place][id number] AGE/SX: 36/F ROOM: RE12/29/[address]: Dr. Jaxon Caceres MD : 1985 BED: DIS: 12/29/2021 SPEC #: [id number] RECD: 12/29/21 13:34 STATUS: NAY LILIANE #: [id number] JESUS ALBERTO: 12/29/21 00:[address]: Jaxon Caceres DEPT: SURGICAL PATHOLOGY RECD BY: Troy Gonzalez ENTERED: 12/30/21 10:38 SP TYPE: HYSTERECT OTHR DR: No Primary Care Phys Tissues: Uterus, NOS Procedures: Surgery Specimen Level V HEADER OPERATION: ERAS, lap robotic hysterectomy, bilateral salpingectomy, cysto PRE-OP DIAGNOSIS: Pelvic and perineal pain TISSUE SUBMITTED: Uterus, cervix and fallopian tubes MICROSCOPIC DIAGNOSIS Uterus, cervix and bilateral fallopian tubes, hysterectomy and bilateral salpingectomy: Cervix ? mild chronic inflammation and squamous metaplasia. Endometrium ? secretory endometrium. - Focal changes consistent with endometrial ablation. Myometrium ? adenomyosis. Bilateral fallopian tubes - no pathologic diagnosis. SJ:michoacano 01/02/2022 MICROSCOPIC DESCRIPTION Slides are reviewed. GROSS DESCRIPTION Received in fixative is one container labeled with the patient's name and designated uterus, cervix, fallopian tubes. The specimen consists of a hysterectomy specimen consisting of uterus with cervix and detached bilateral fallopian tubes. The uterus with cervix weighs 121 gm and measures 11 x 7 x 5 cm. The serosal surface is ragged. The ectocervical mucosa is unremarkable. The external os is oval in contour. The endocervical canal measures 3 cm in length and the endocervical mucosa is perales, glistening and unremarkable. The triangular endometrial cavity measures 5 cm in length and up to 2 cm in width. The endometrium is perales, glistening without any mass lesion and measures 0.1 cm in thickness. The endometrial cavity also shows focal area of blood clot. The endometrium measures 0.1 cm in thickness. The endometrial cavity also shows focal area of obliteration in the middle. Sections of the uterine wall do not reveal any mass lesion and it measures up to 3 cm in thickness. The fallopian tubes are not identified as right or left and measures 7.5 cm in length and 0.5 cm in diameter and 5 cm in length and 0.5 cm in diameter. The fimbrial end is identified. Sections reveal unremarkable cut surfaces. [employer] Location [employer] sections are submitted in ten cassettes as follows: 1 - anterior cervix, 2 - posterior cervix, 3-5 - anterior uterine wall, 6-8 - posterior uterine wall, 9 - one fallopian, 10 - second fallopian tube. / JOSE L:michoacano 12/30/2021 TC:3 CPT: 53896
[2021-12-29 07:35] LABS: Internal QC Validated? YES +Cl - CLEAR BKGD; Pregnancy, Urine Negative Negative
[2021-12-29] MEDS: Gabapentin 600 MG Tablet PO (07:45)
[2021-12-29] MEDS: Acetaminophen 500 MG Tablet 1000 MG PO ×2 (07:45→16:33)
[2021-12-29] MEDS: Lactated Ringers 1,000 ML 40 ML IV (07:46)
[2021-12-29 07:51] LABS: Bedside Glucose 129 mg/dL (74-106)
--- NOTE | 2021-12-29 09:57 | PCM.HP.BLA ---
History and Physical Date of Admission: 12/29/21 Surgical History and Physical Date: 12/29/2021 Name: DILLAN HERNANDEZ Age: 36 Date of : 1985 Dillan Hernandez, a 36 year old female 2 1 0 1 3, presents for Robotic assisted Total laparoscopic hysterectomy bilateral salpingectomy, cystoscopy on 12/29 at 9:00. -- Dillan is here for preop visit she is having a hysterectomy. consents signed. MEDICATIONS HISTORY: Current medications prescribed by our practice are: 1. ibuprofen 600 mg tablet, 1 PO every four to six hours PRN Postoperative pain 2. + DHA 28 mg iron- 975 mcg-200 mg combo pack, daily ALLERGIES: Latex sensitivity, Itchy skin--no breathing probs, Latex, Rash and itching Infections - Hepatitis C Illnesses - none Accidents - no injuries of consequence Hospitalizations - Childbirth and surgery by , labor and HX abnormal paps; Review of Systems: GENERAL - Denies fever, or chills SKIN - Denies skin changes EYES - Denies visual changes EARS - Denies difficulty hearing NOSE - Denies nasal congestion or bleeding MOUTH - Denies sore throat or difficulty swallowing NECK - Denies pain or swelling RESPIRATORY - Denies shortness of breath or wheezing CARDIOVASCULAR - Denies palpitations or chest pain GASTROINTESTINAL - Denies nausea, vomiting, diarrhea, constipation GENITOURINARY - Denies dysuria, frequency of urination, incontinence of urine MUSCULOSKELETAL - Denies joint or muscle pain NEUROLOGICAL - Denies localized numbness or weakness PSYCHIATRIC - Denies depression or anxiety ENDOCRINE - Denies heat or cold intolerance, weight loss or gain HEMATO-IMMUNOLOGIC - Denies excessive bleeding with cuts SOCIAL HISTORY: Alcohol Use - denies drinking Smoking - Uses Vapor Pen Diet - balanced Diet Lifestyle - low stress lifestyle and Exercise - regular and walking Seat Belt Use - always 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 MENSTRUAL HISTORY: LMP Known?- Approximate-Month KnownAmount/Duration - 7+, Regularity - Irregular, Frequency - variable days, LMP - 08/24/21, Age Onset Menarche - 12 PAST PREGNANCIES: Total Pregnancies - 3; Full Term Pregnancies - 2; Premature - 1; Abortions, Induced - 0; Abortions, Spontaneous - 0; Ectopics - 0; Multiple Births - 1; Living Children - 3 SURGICAL HISTORY: 1. 09/08/2008 ; Al Rm C/S 2. 12/02/2006 ; Tizzano - cedphalopelvic disproportion 3. 06/07/2011 ; - 4. 08/29/2021 hysteroscopy, D and C, Karey ablation ; Jaxon Caceres MD - PHYSICAL EXAM BP- 128/74 Sitting, Left arm, large cuff Weight- 213.80126 lbs Height- 64.5 inch BMI:[id number] CONSTITUTIONAL - NAD, well nourished, and well developed SKIN - No rash, lesions, or ulcers HEENT - Normocephalic, PERRLA, EOMI NECK - No nodes, no nuchal rigidity and thyroid normal size and texture LYMPH NODES - Palpation of lymph nodes in neck and groins within normal limits ABDOMEN - Without hepatosplenomegaly, distention, masses, rebound, or guarding; normal bowel sounds; no hernias EXTREMITIES - No edema or calf tenderness NEUROLOGICAL - Cranial nerves II-XII grossly intact PSYCHIATRIC - A and O to time, place, person, mood and affect External Genital Vagina - non-tender without lesions Urethra/Urethral Meatus - non-tender Bladder - non-tender Vagina - vaginal lomax are pink and moist without loss of rugae and no evidence of atropy Cervix - without cervical motion tenderness and has normal size and features without evident lesions Uterus - 5-6 cm in size, mobile and nontender Adnexa - clear without masses or tenderness ASSESSMENT/PLAN: 1. Pelvic And Perineal Pain Patient with right-sided pelvic pain status post ablation this pain occurs several times a week for months and is debilitating prevents her from work. Unimproved with ibuprofen and heating pain Patient elects for hysterectomy For robotic assisted total laparoscopic hysterectomy bilateral salpingectomy, cystoscopy 2. Encounter For Other Preprocedural Examination Patient for robotic assisted total laparoscopic hysterectomy bilateral salpingectomy, cystoscopy for pelvic pain Educated patient on risk benefits alternatives, all questions answered and consent signed Educated patient on postoperative recovery and activity after surgery
[2021-12-29] MEDS: Cefazolin 2 GM in 0.9% Normal Saline 100 ML IV (10:09)
--- NOTE | 2021-12-29 12:38 | PCM.DC ---
Discharge Instructions Diet Discharge Diet: No restrictions Activity Discharge Activity: May Drive, May Shower and - (No tub baths for 2) May resume sexual activity in: 4-6 weeks Lifting Restrictions: No lifting over 25 pounds for 2 to 3 weeks Dressing / Incision Call your doctor if your incision/area has: Continuous Slow Oozing and Foul Smelling Discharge Call your doctor if you observe: Fever of 101 or Higher, Shortness of breath and Chest pain Follow Up Care Please Follow Up With: Jaxon Caceres MD When: 2 weeks postoperatively Test Results: Test results from this visit will be discussed in further detail at your follow-up appointment, if applicable. Discharge Plan Admission Primary Reason for Your Visit: Hysterectomy Attending Provider: Jaxon Caceres Primary Care Provider: Care PhysicianTammie Primary Discharge Orders/Prescriptions Prescriptions: New oxycodone 5 mg Tablet 5 mg PO Q6H PRN PRN (Reason: Pain Score 7-10/10) 5 Days Qty: 24 RF: 0 Continued cetirizine [Zyrtec] 10 mg Tablet 10 mg PO DAILY RF: 0 400 mcg Tablet,Chewable 2 tab PO DAILY RF: 0 Referrals / Follow Up: Care Physician,No Primary [Primary Care Provider] - Disposition Disposition (needs filled in before D/C Order can be placed): Home, Self Care
--- NOTE | 2021-12-29 12:39 | OP.PCM_ITS ---
Report of Operation Date of Procedure: 12/29/21 Pre-Operative Diagnosis: Pelvic pain, abnormal uterine bleeding Post-Operative Diagnosis: Pelvic pain, abnormal uterine bleeding Surgery/Procedure Performed:: Robotic assisted total laparoscopic hysterectomy bilateral salpingectomy, cystoscopy, lysis of adhesions Description of Surgical Findings:: Surgeon: Jaxon Caceres MD Anesthesia: General EBL: 20 cc Urine output: 150 cc IV fluids: 1600 cc Complications none Specimen: Cervix, uterus, bilateral fallopian tubes Findings: Large amount of adhesions; omental adhesions to anterior abdominal wall and fundus of the uterus complete lateral side of the uterus, also vesicouterine adhesions to the fundus. Spent 20 minutes lysing adhesions. Otherwise normal uterus, tubes, and ovaries. Post procedure cystoscopy with no pathology noted, bilateral ureteral jets noted. Consent: Patient with pelvic pain and abnormal uterine bleeding in need of robotic assisted total laparoscopic hysterectomy bilateral salpingectomy and cystoscopy. Patient understands risk of the procedure include but are not limited to visceral or vascular injury, prolonged hospitalization, blood loss and need for transfusion, reoperation. Patient stated understanding and wished to proceed. All questions were answered and consent was signed. Procedure: Patient was brought back to the OR where general anesthesia was found be adequate. 2 g of Ancef were given for infection prophylaxis. Patient was prepared and draped in a dorsal lithotomy position with yellowfin stirrups. A weighted speculum was placed in the posterior aspect of the vagina and cervical dilators were used to dilate the cervix. Uterine manipulator was placed. Varies needle was inserted at the umbilicus water safety test was passed abdomen was insufflated 8 mm midline supraumbilical trocar was inserted under direct visualization. Camera was inserted and above findings were noted. Bilateral lower quadrant 8 mm trocar incisions were made and trochars were inserted under direct visualization. Left upper quadrant 12 mm trocar was inserted under direct visualization. Robot was docked using vessel sealer and monopolar scissors. As noted above 20 minutes of lysis of adhesions was performed for above adhesions using vessel sealer and monopolar scissors. Left lobe the tube was identified to the fimbria and the mesosalpinx was cut and cauterized with the vessel sealer, full up into was transected and removed from abdomen and sent to pathology. Left utero-ovarian ligament was cut and cauterized with vessel sealer. Left round ligament was cut and cauterized with vessel sealer, anterior and posterior flaps of the broad ligament were dissected, bladder flap was developed. Left uterine vessels were cut and cauterized lateralize beyond the level of the colpotomy cup. Right fallopian tube was identified to the February mesosalpinx was cut and cauterized with the vessel sealer. Right round ligament was cut and cauterized with the vessel sealer, anterior and posterior flap the broad ligament was dissected, bladder flap was completely developed the on the level of the colpotomy cup. Right utero-ovarian ligament was cut and cauterized. Right uterine vessels were cut and cauterized lateralize beyond the level of the colpotomy cup. Circumferential colpotomy was made. Uterus was removed from the abdominal cavity and sent to pathology. Good hemostasis was noted. Uterus was closed with V-Loc suture in a continuous running fashion. Good hemostasis was noted. Cystoscopy was performed and above findings were noted. 12 mm trocar was closed with the help of a Johnathan Dunbar device. All trochars were closed in a subcutaneous fashion. Good hemostasis was noted. All counts were correct x2. Patient tolerated procedure well and was brought to recovery in stable condition. personnel associate: Landen Dumont personnel associate: Lalit Yu
[2021-12-29] MEDS: Ketorolac 30 MG/ML Syringe IV (13:34)
[2021-12-29] MEDS: oxyCODONE 5 MG Tablet PO (15:13)
== END 2021-12-29 23:59 | disposition home or self-care (01) ==
LOC: SDC 07:03 → AC 07:03
PROVIDERS: Anesthesiology; Referring Provider Obstetrics & Gynecology; Visit Provider Obstetrics & Gynecology
PROC: 0UT90ZZ Resection of Uterus, Open Approach (ICD-10-PCS; CPT 58552; principal; 2021-12-29 08:40)
DX: N87.9 Dysplasia of cervix uteri, unspecified (principal); N80.0 Endometriosis of uterus; F17.290 Nicotine dependence, other tobacco product, uncomplicated
CPT/HCPCS: 58552; 52000; 00952; 36415; 80076; 81025; 82962; 83735; 85027; 86850; 86900; 86901; 87426; 88307; C9803; J7120; J2405; J3475

== ENCOUNTER → 2022-10-10 | Outpatient (CLI) | payer MEDICAID, SELFPAY ==
--- NOTE | 2022-10-10 09:37 | US_ITS ---
STUDY: ULTRASOUND BREAST - RIGHT REASON FOR EXAM: Female, 37 years old. Right axillary lump and palpable lump in the inferior outer quadrant of the right breast. TECHNIQUE: Axial and longitudinal images of the RIGHT breast were performed with a high resolution ultrasound transducer. # OF IMAGES: 35 COMPARISON: Comparison is made with prior mammogram done earlier in the day. FINDINGS: RIGHT Breast: The right axillary region was examined with ultrasound. No sonographic abnormality is seen. Imaging of the lower outer quadrant of the right breast was examined as well with ultrasound. No sonographic abnormality is seen. US/Breast Limited Unilateral IMPRESSION: Unremarkable targeted ultrasound of the breasts. ASSESSMENT CATEGORY: BIRADS Category 1: Negative. A letter regarding these results will be sent to the patient by the facility within 30 days. Electronically Signed: Oscar Hobbs MD at 14:24 EST ,
--- NOTE | 2022-10-10 09:37 | BI_ITS ---
MAMMOGRAPHY - BILATERAL DIAGNOSTIC REASON FOR EXAM: Female, 37 years old. Right axillary breast lump for 6 months. Right lateral breast pain. PERTINENT HISTORY: Non-contributory. TECHNIQUE: Digital bilateral breast brandi (3D mammographic acquisition) in the CC and MLO projections. 2-D mediolateral oblique (MLO) and craniocaudad (CC) views of both breasts were obtained. CAD: Full Field Digital Mammography with Computer Added Detection was performed. COMPARISON: None. Baseline examination. FINDINGS: Breast Composition: There are scattered areas of fibroglandular density. There are no dominant masses or suspicious calcifications. No other significant abnormalities are identified. BI/DIAG MAMM W/CAD, BILAT IMPRESSION: Negative diagnostic mammogram. With the patient''s history of a palpable lump in the right axilla as well as right lateral breast pain, targeted ultrasound correlation is recommended. ASSESSMENT CATEGORY: BIRADS Category 0: Incomplete. Need additional imaging evaluation. A letter regarding these results will be sent to the patient by the facility within 30 days. Approximately 10% of breast cancers are not detected by mammography. A normal mammogram should not delay biopsy of a clinically suspicious abnormality. Electronically Signed: Oscar Hobbs MD at 10:43 EST ,
== END | disposition home or self-care (01) ==
LOC: OPBI 09:35
PROVIDERS: Referring Provider Obstetrics & Gynecology; Visit Provider Obstetrics & Gynecology
DX: N63.31 Unspecified lump in axillary tail of the right breast (principal); N64.4 Mastodynia
CPT/HCPCS: 77062; 76642; 77066; G0279

== ENCOUNTER → 2022-10-31 | Outpatient (CLI) | payer MEDICAID, SELFPAY ==
[2022-10-31 12:30] LABS: Absolute Neutrophil Count 2.4 X10^3/uL (2.0-7.7); Basophil# 0.02 X10^3/uL; Basophil% 0.3 % (0-1); Eosinophil# 0.13 X10^3/uL; Eosinophils% 2.2 % (0-5); Hematocrit 42.6 % (37-47); Hemoglobin 14.1 g/dL (12.0-15.0); Lymphocyte % 49.6 % (19-41); Mean Corp Hgb Conc 33.1 g/dL (32-36); Mean Corpuscular Hgb 29.7 pg (27.0-32.0); Mean Corpuscular Volume 89.7 fL (81-99); Mean Platelet Vol. 10.1 fl (6.2-12.0); Monocyte# 0.37 X10^3/uL; Monocyte% 6.3 % (0-10); NRBC Flagged by Analyzer 0 % (0-5); Neutrophil # 2.42 X10^3/uL (2.7-7.7); Neutrophil % 41.4 % (47-70); Platelet Count 274 K/mm3 (150-450); RBC Distribution Width CV 12.4 % (11.6-14.6); RBC Distribution Width SD 40.9 fl (35.1-43.9); Red Blood Count 4.75 M/mm3 (4.2-5.4); White Blood Count 5.9 K/mm3 (4.4-11.0)
[2022-10-31 13:12] LABS: AST(SGOT) 55 U/L (15-37); Alanine Aminotransfer ALT/SGPT 78 U/L (13-56); Albumin, Serum 3.7 g/dL (3.2-5.0); Alkaline Phosphatase 67 U/L (45-117); Anion Gap 6 (5-15); BUN 15 mg/dL (7-18); BUN/Creat Ratio 19.7 RATIO (10-20); Calcium,Total 8.9 mg/dL (8.5-10.1); Chloride 110 mmol/L (98-107); Cholesterol 168 mg/dL (200); Creatinine, Serum 0.76 mg/dL (0.55-1.02); EST Glomerular Filtration Rate 91 mL/min (>60); Est Glom Filt Rate - Afr Amer 110 mL/min (>60); Globulin 3.8 g/dL (2.2-4.2); Glucose 90 mg/dL (74-106); High Density Lipoprotein 48 mg/dL; Potassium 3.9 mmol/L (3.5-5.1); Protein, Total 7.5 g/dL (6.4-8.2); Sodium Level 140 mmol/L (136-145); Triglycerides 85 mg/dL; Very Low Density Lipoprotein 17 mg/dL (5-40)
[2022-11-02 22:07] LABS: HCV Quant. RNA PCR 501000 IU/mL (.); Hepatitis C Genotype 3 (.)
== END | disposition home or self-care (01) ==
LOC: BIMLAB 09:21
PROVIDERS: PCP Internal Medicine; Referring Provider Internal Medicine; Visit Provider Internal Medicine
DX: Z13.6 Encounter for screening for cardiovascular disorders (principal); B19.20 Unspecified viral hepatitis C without hepatic coma
CPT/HCPCS: 36415; 80053; 80061; 85025; 87522; 87902

== ENCOUNTER → 2023-01-10 | Outpatient (CLI) | payer MEDICAID, SELFPAY ==
[2023-01-10 10:04] LABS: Prothrombin Time (Protime)PT. 12.6 SECONDS (11.7-14.9)
[2023-01-10 10:25] LABS: Ferritin 31 ng/mL (8-252)
[2023-01-10 10:49] LABS: HIV - WCH Non-Reactive (Nonreactive); Hepatitis B Surface Antibody Reactive; Hepatitis B Surface Antigen Non-Reactive (Nonreactive)
[2023-01-11 15:08] LABS: Anti-Centromere B Ab <0.2 AI (0.0-0.9); Anti-Chromatin <0.2 AI (0.0-0.9); Anti-Jo <0.2 AI (0.0-0.9); Anti-Mitochondrial AB <20.0 Units (0.0-20.0); Anti-Scleroderma-70 AB <0.2 AI (0.0-0.9); Anti-dsDNA Ab 2 IU/mL (0-9); RNP Ab <0.2 AI (0.0-0.9); SJOGREN'S Anti-SS-A test < 0.2 AI (0.0-0.9); SJOGREN'S Anti-SS-B test < 0.2 AI (0.0-0.9); Smith Ab <0.2 AI (0.0-0.9)
[2023-01-12 08:25] LABS: AFP, Tumor Marker 4.6 ng/mL (0.0-6.4); Angiotensin Convert Enzyme 36 U/L (14-82); Anti-Smooth Muscle ABS 13 Units (0-19); Ceruloplasmin 28.9 mg/dL (19.0-39.0); Copper, Serum or Plasma 115 ug/dL (80-158); Cytoplasmic Ab (C-ANCA) <1:20 titer (Neg:<1:20); Haptoglobin 75 mg/dL (33-278); Perinuclear Ab (P-ANCA) <1:20 titer (Neg:<1:20)
== END | disposition home or self-care (01) ==
LOC: LAB 08:28
PROVIDERS: PCP Internal Medicine; Referring Provider Nurse Practitioner Adult Health; Visit Provider Nurse Practitioner Adult Health
DX: B18.2 Chronic viral hepatitis C (principal)
CPT/HCPCS: 36415; 82105; 82140; 82164; 82390; 82525; 82728; 83010; 83516; 85610; 86225; 86235; 86256; 86703; 86706; 87340

== ENCOUNTER → 2023-01-25 | Outpatient (CLI) | payer MEDICAID, SELFPAY ==
--- NOTE | 2023-01-25 07:54 | US_ITS ---
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 TECHNICAL QUALITY: Adequate. COMPARISON: None. FINDINGS: Liver: The liver is mildly enlarged and measures 17.8 cm. There is a heterogeneous echogenicity of the liver. The bile ducts are within normal limits. There is hepatic color flow. The direction of portal flow is hepatopetal. There is no demonstrated mass lesion. Gallbladder: Normal distended gallbladder. The gallbladder wall measures 1 mm. There is a negative sonographic Ragland''s sign. There is no pericholecystic fluid. There are no gallstones. Common Bile Duct (C.B.D.): The common bile duct measures 5 mm. Pancreas: Normal size of the head, body and tail of the pancreas. There is normal echogenicity of the pancreas. There is no demonstrated pancreatic mass or cyst. Right Kidney: Normal size of the right kidney. The right kidney measures 10.9 cm x 5.3 cm x 4.4 cm. Normal renal cortex. The right cortex measures 1.4 cm. There is no demonstrated renal mass or cyst. There is no right hydronephrosis. IMPRESSION: Mild hepatomegaly and heterogeneous echotexture of the liver. Electronically Signed: Oscar Hobbs MD at 9:21 EDT , STUDY: ABDOMINAL ULTRASOUND - ELASTOGRAPHY REASON FOR VISIT: Female, 37 years old. Hepatitis C. TECHNIQUE: Liver stiffness measurements were obtained on a [employer] 85 ultrasound machine using a CA 1-7 probe following the SRU guidelines. 3 measurements were obtained using a 2-D-SWE method. TheIQR/M was 19 % suggesting a quality data set. TECHNICAL QUALITY: Adequate. COMPARISON: Comparison is made with prior study done earlier today. FINDINGS: Liver: There is no demonstrated mass lesion. Median liver stiffness measured 6.4 kPa. Abdomen: There is no demonstrated mass lesion. US/ABD Limited w/ Elastography IMPRESSION: Liver stiffness measures 6.4 kPa compatible with F2-F3 (Mild to moderate liver fibrosis) Metavir score. Electronically Signed: Oscar Hobbs MD at 9:23 EDT ,
== END | disposition home or self-care (01) ==
LOC: US 07:53
PROVIDERS: PCP Internal Medicine; Referring Provider Nurse Practitioner Adult Health; Visit Provider Nurse Practitioner Adult Health
DX: R10.11 Right upper quadrant pain (principal)
CPT/HCPCS: 76705; 76981

== ENCOUNTER → 2023-04-02 | Outpatient (CLI) | payer MEDICAID, SELFPAY ==
[2023-04-04 19:07] LABS: HCV Quant. RNA PCR HCV Not Detected IU/mL (.)
== END | disposition home or self-care (01) ==
LOC: LAB 15:31
PROVIDERS: PCP Internal Medicine; Referring Provider Internal Medicine Gastroenterology; Visit Provider Internal Medicine Gastroenterology
DX: B19.20 Unspecified viral hepatitis C without hepatic coma (principal)
CPT/HCPCS: 36415; 87522

== ENCOUNTER → 2023-10-29 | Outpatient (CLI) | payer MEDICAID, SELFPAY ==
--- OUTSIDE RECORDS SUMMARY | 2023-10-29 10:21 | XMS RPT_ITS | CCD ---
Author Name Unknown Address [address] [facility] [address] [place] [address] Organization [facility] Care Team Providers Care Publications Production Supervisor Name Role Phone Pcp MOTOR VEHICLE LECTURER, No Unavailable Unavailable Allergies Allergy Classification Reported Allergen(s) Allergy Type Date of Onset Reaction(s) Facility (2 sources) Latex; Translations: [LATEX] Propensity to adverse reactions 01-12-2009 [facility] (2 sources) Latex; Translations: [LATEX, NATURAL RUBBER] Drug Allergy 03-03-2012 Rash [facility] Medications Current Medications Medication Drug Class(es) Dates Sig (Normalized) Sig (Original) amoxicillin 500 mg oral capsule (1 source) Penicillin-class Antibacterial Start: 07-08-2023 End: 07-18-2023 take 1 capsule by mouth twice daily amoxicillin (AMOXIL) 500 mg capsule Take 1 capsule by mouth two times a day for 10 days. 20 capsule 0 07/08/2023 07/18/2023 Active Completed/Discontinued Medications Medication Drug Class(es) Dates Sig (Normalized) Sig (Original) acetaminophen 500 mg / HYDROcodone bitartrate 5 mg oral tablet (1 source) Opioid Agonist Start: 03-22-2012 take 1 tablet by mouth every six hours as needed acetaminophen-hyd rocodone (VICODIN) 5-500 mg tablet Take 1 tablet by mouth every 6 hours as needed for Pain. 10 tablet 0 03/22/2012 Active Problems Problem Classification Problem Date Documented Da te Episodic/Chronic Anxiety disorders (1 source) Anxiety state; Translations: [Generalized anxiety disorder] Onset: 02-13-2009 02-13-2009 Chronic Mood disorders (1 source) Depressive disorder; Translations: [Other specified depressive episodes] Onset: 02-13-2009 02-13-2009 Chronic Other upper respiratory infections (3 sources) Sore throat symptom; Translations: [Acute pharyngitis, unspecified] 07-08-2023 Episodic Results Test Name Value Interpretation Reference Range Facil ity Vital Signs Date Time Vital Sign Value Performing Clinician Franklini danielito 07-08-2023 12:19-0400 Body temperature 98.2 [degF] Jake Castro MOTOR VEHICLE LECTURER.DIRECTOR HEMATOLOGY Work Phone: [facility] 07-08-2023 12:19-0400 Body weight 105.23 kg Jake Castro MOTOR VEHICLE LECTURER.DIRECTOR HEMATOLOGY Work Phone: [facility] 07-08-2023 12:19-0400 Diastolic blood pressure 71 mm[Hg] Jake Castro MOTOR VEHICLE LECTURER.DIRECTOR HEMATOLOGY Work Phone: [facility] 07-08-2023 12:19-0400 Heart rate 58 /min Jake Castro MOTOR VEHICLE LECTURER.DIRECTOR HEMATOLOGY Work Phone: [facility] 07-08-2023 12:19-0400 Respiratory rate 22 /min Jake Castro MOTOR VEHICLE LECTURER.DIRECTOR HEMATOLOGY Work Phone: [facility] 07-08-2023 12:19-0400 SaO2% (BldA) [Mass fraction] 97 % Jake Castro MOTOR VEHICLE LECTURER.DIRECTOR HEMATOLOGY Work Phone: [facility] 07-08-2023 12:19-0400 Systolic blood pressure 115 mm[Hg] Jake Castro MOTOR VEHICLE LECTURER.DIRECTOR HEMATOLOGY Work Phone: [facility] Encounters Encounter Date Encounter Type Care Provider Facility Start: 07-08-2023 End: 07-08-2023 ambulatory Facility:[facility] Start: 07-08-2023 End: 07-08-2023 Office outpatient visit 25 minutes Jake Castro MOTOR VEHICLE LECTURER.DIRECTOR HEMATOLOGY Work Phone: [facility] Procedures Date Procedure Procedure Detail Performing Clinician Start: 07-08-2023 STREP A MOLECULAR (POC) Jake Castro APRN.DIRECTOR HEMATOLOGY Work Phone: Plan of Treatment Date Care Activity Detail Author Start: 05-25-2023 Influenza vaccination Influenza Vacc ine (#1) [facility] Start: 09-24-2022 Depression Assessment Depression Ass essment [facility] Start: 2016 HPV Testing HPV Testing [facility] Start: 08-26-2014 Pap Testing Pap Testing [facility] Start: 2005 Urine microalbumin profile DTa P,Tdap,Td Vaccine (1 - Tdap) [facility] Start: 2004 Hepatitis C Screening Hepatitis C Sc josening [facility] Start: 2004 HIV Screening HIV Screening [facility] Start: 1986 Covid-19 Vaccine (#1) Covid-19 Vacci ne (#1) [facility] Start: 1986 Hepatitis B Vaccine (1 of 3 - 3-dose series) Hepatitis B Vaccine (1 of 3 - 3-dose series) [facility] Payers Date Payer Category Payer Medicaid [facility] MEDICAID [facility] PLAN MEDICAID OF [place] [id number] 2022-Present [phone] [address] [place] [address] Medicaid [id number] 2022 Medicaid [id number] Social History Date Type Detail Facility Start: 07-08-2023 Tobacco smoking stat [facility] Smokes tobacco daily [facility] History of tobacco use [facility] Start: 07-08-2023 Cigarettes smoked cu rrent (pack per day) - Reported 0.5 [facility] Start: 07-08-2023 Alcohol intake 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 Author Type: Nurse Practitioner Type: Progress Notes Filed: 07/08/2023 12:42 PM Note Text: Subjective HPI Nontoxic-appearing female presents to urgent care with chief complaint of upper respiratory tract like infection. Duration of symptoms 3 days. Associated symptoms sore throat, nasal congestion, nasal discharge and nonproductive cough. Most bothersome symptom today is sore throat. Patient denies the use of any mgtt-auo-fbtugtv medications or home remedies for symptom management. Patient states recent sick contacts with similar signs and symptoms. Patient denies any productive cough, fever, chest pain, shortness of breath, pleuritic pain, rash, abdominal pain, nausea, vomiting or change in bowel or bladder habit. Denies chance of . Is not breast-feeding. Past medical history prescription medication use allergies reviewed .Patient presents with: Sore Throat: Congestion, cough, nasal congestion, x 2-3 days PAST MEDICAL HISTORY Diagnosis Date NEGATIVE MEDICAL HISTORY Psychiatric disorder anxiety PAST SURGICAL HISTORY Procedure Laterality Date DELIVERY ONLY 2006 , low cervical DELIVERY ONLY 2007 , low transverse ALLERGIES Latex and Latex, Natural Rubber MEDICATIONS acetaminophen-hydrocodone (VICODIN) 5-500 mg tablet Take 1 tablet by mouth every 6 hours as needed for Pain. (Patient not taking: Reported on 07/08/2023) ALPRAZolam (XANAX) 1 mg tablet Take 1 mg by mouth three times daily as needed. (Patient not taking: Reported on 07/08/2023) ALPRAZolam 1 mg tablet Take 1 tablet by mouth three times daily as needed for Anxiety. (Patient not taking: Reported on 07/08/2023) amoxicillin (AMOXIL) 500 mg capsule Take 1 capsule by mouth two times a day for 10 days. cetirizine (ZYRTEC) 10 mg tablet Take 1 tablet by mouth every afternoon. fluticasone (FLONASE) 50 mcg/actuation nasal spray Use in the nose. omeprazole (PRILOSEC) 40 mg capsule FAMILY HISTORY Problem Relation Age of Onset Diabetes Paternal Grandmother Diabetes Paternal Aunt Hypertension Paternal Grandfather Heart Paternal Grandfather [place] Osteoporosis Maternal Grandmother Social History Tobacco Use Smoking status: Every Day Packs/day: 0.50 Years: 7.00 Additional pack years: 0.00 Total pack years: 3.50 Types: Cigarettes Tobacco comments: 1 PACK A WEEK Substance Use Topics Alcohol use: No Comment: Occasionally Drug use: No BP 115/71 Pulse (!) 58 Temp 36.8 ?C (98.2 ?F) Resp 22 Wt 105.2 kg (232 lb) LMP (LMP Unknown) SpO2 97% Review of Systems Constitutional: Negative for chills, fever and malaise/fatigue. HENT: Positive for congestion and sore throat. Negative for ear discharge, ear pain and sinus pain. Eyes: Negative for blurred vision, pain, discharge and redness. Respiratory: Positive for cough. Negative for hemoptysis, sputum production, shortness of breath, wheezing and stridor. Cardiovascular: Negative for chest pain. Gastrointestinal: Negative for abdominal pain, diarrhea, nausea and vomiting. Musculoskeletal: Negative for myalgias. Skin: Negative for itching and rash. Neurological: Negative for dizziness and headaches. Objective Physical Exam Constitutional: General: She is not in acute distress. Appearance: She is not diaphoretic. HENT: Head: Normocephalic. Jaw: No trismus, tenderness, swelling or pain on movement. Right Ear: Tympanic membrane, ear canal and external ear normal. Left Ear: Tympanic membrane, ear canal and external ear normal. Nose: Congestion present. Mouth/Throat: Lips: [place]. Mouth: Mucous membranes are moist. Pharynx: Oropharynx is clear. Uvula midline. Posterior oropharyngeal erythema present. No pharyngeal swelling, oropharyngeal exudate or uvula swelling. Tonsils: No tonsillar exudate or tonsillar abscesses. 0 on the right. 0 on the left. Eyes: Conjunctiva/sclera: Conjunctivae normal. Pupils: Pupils are equal, round, and reactive to light. Cardiovascular: Rate and Rhythm: Normal rate and regular rhythm. Heart sounds: Normal heart sounds. Pulmonary: Effort: Pulmonary effort is normal. No tachypnea, accessory muscle usage or respiratory distress. Breath sounds: Normal breath sounds. No stridor. No wheezing, rhonchi or rales. Abdominal: General: There is no distension. Palpations: Abdomen is soft. Tenderness: There is no abdominal tenderness. There is no guarding or rebound. Musculoskeletal: Cervical back: Normal range of motion and neck supple. No edema, erythema, rigidity or tenderness. No pain with movement. Normal range of motion. Lymphadenopathy: Cervical: No cervical adenopathy. Skin: General: Skin is warm and dry. Neurological: Mental Status: She is alert and oriented to person, place, and time. ASSESSMENT/PLAN: 1. Sore throat - ICD9: 462, ICD10: J02.9 (more content not included)... [facility] History of Present illness Narrative 07-08-2023 Jake Castro, ANETA.DIRECTOR HEMATOLOGY - 07/08/2023 12:28 PM EDT Note Date & Type Note Facility 07-08-2023 History of Presen t illness Narrative Subjective HPI Nontoxic-appearing female presents to urgent care with chief complaint of upper respiratory tract like infection. Duration of symptoms 3 days. Associated symptoms sore throat, nasal congestion, nasal discharge and nonproductive cough. Most bothersome symptom today is sore throat. Patient denies the use of any kisy-ihj-fvbmmms medications or home remedies for symptom management. Patient states recent sick contacts with similar signs and symptoms. Patient denies any productive cough, fever, chest pain, shortness of breath, pleuritic pain, rash, abdominal pain, nausea, vomiting or change in bowel or bladder habit. Denies chance of . Is not breast-feeding. Past medical history prescription medication use allergies reviewed .Patient presents with: Sore Throat: Congestion, cough, nasal congestion, x 2-3 days PAST MEDICAL HISTORY Diagnosis Date NEGATIVE MEDICAL HISTORY Psychiatric disorder anxiety PAST SURGICAL HISTORY Procedure Laterality Date DELIVERY ONLY 2006 , low cervical DELIVERY ONLY 2007 , low transverse ALLERGIES Latex and Latex, Natural Rubber MEDICATIONS acetaminophen-hydrocodone (VICODIN) 5-500 mg tablet Take 1 tablet by mouth every 6 hours as needed for Pain. (Patient not taking: Reported on 07/08/2023) ALPRAZolam (XANAX) 1 mg tablet Take 1 mg by mouth three times daily as needed. (Patient not taking: Reported on 07/08/2023) ALPRAZolam 1 mg tablet Take 1 tablet by mouth three times daily as needed for Anxiety. (Patient not taking: Reported on 07/08/2023) amoxicillin (AMOXIL) 500 mg capsule Take 1 capsule by mouth two times a day for 10 days. cetirizine (ZYRTEC) 10 mg tablet Take 1 tablet by mouth every afternoon. fluticasone (FLONASE) 50 mcg/actuation nasal spray Use in the nose. omeprazole (PRILOSEC) 40 mg capsule FAMILY HISTORY Problem Relation Age of Onset Diabetes Paternal Grandmother Diabetes Paternal Aunt Hypertension Paternal Grandfather Heart Paternal Grandfather [place] Osteoporosis Maternal Grandmother Social History Tobacco Use Smoking status: Every Day Packs/day: 0.50 Years: 7.00 Additional pack years: 0.00 Total pack years: 3.50 Types: Cigarettes Tobacco comments: 1 PACK A WEEK Substance Use Topics Alcohol use: No Comment: Occasionally Drug use: No BP 115/71 Pulse (!) 58 Temp 36.8 C (98.2 F) Resp 22 Wt 105.2 kg (232 lb) LMP (LMP Unknown) SpO2 97% Review of Systems Constitutional: Negative for chills, fever and malaise/fatigue. HENT: Positive for congestion and sore throat. Negative for ear discharge, ear pain and sinus pain. Eyes: Negative for blurred vision, pain, discharge and redness. Respiratory: Positive for cough. Negative for hemoptysis, sputum production, shortness of breath, wheezing and stridor. Cardiovascular: Negative for chest pain. Gastrointestinal: Negative for abdominal pain, diarrhea, nausea and vomiting. Musculoskeletal: Negative for myalgias. Skin: Negative for itching and rash. Neurological: Negative for dizziness and headaches. Objective Physical Exam Constitutional: General: She is not in acute distress. Appearance: She is not diaphoretic. HENT: Head: Normocephalic. Jaw: No trismus, tenderness, swelling or pain on movement. Right Ear: Tympanic membrane, ear canal and external ear normal. Left Ear: Tympanic membrane, ear canal and external ear normal. Nose: Congestion present. Mouth/Throat: Lips: [place]. Mouth: Mucous membranes are moist. Pharynx: Oropharynx is clear. Uvula midline. Posterior oropharyngeal erythema present. No pharyngeal swelling, oropharyngeal exudate or uvula swelling. Tonsils: No tonsillar exudate or tonsillar abscesses. 0 on the right. 0 on the left. Eyes: Conjunctiva/sclera: Conjunctivae normal. Pupils: Pupils are equal, round, and reactive to light. Cardiovascular: Rate and Rhythm: Normal rate and regular rhythm. Heart sounds: Normal heart sounds. Pulmonary: Effort: Pulmonary effort is normal. No tachypnea, accessory muscle usage or respiratory distress. Breath sounds: Normal breath sounds. No stridor. No wheezing, rhonchi or rales. Abdominal: General: There is no distension. Palpations: Abdomen is soft. Tenderness: There is no abdominal tenderness. There is no guarding or rebound. Musculoskeletal: Cervical back: Normal range of motion and neck supple. No edema, erythema, rigidity or tenderness. No pain with movement. Normal range of motion. Lymphadenopathy: Cervical: No cervical adenopathy. Skin: General: Skin is warm and dry. Neurological: Mental Status: She is alert and oriented to person, place, and time. ASSESSMENT/PLAN: 1. Sore throat - ICD9: 462, ICD10: J02.9 (primary diagnosis) - STREP A MOLECULAR (POC) 2. Strep throat - ICD9: 034.0, ICD10: J02.0 3. Viral URI with cough - ICD9: 465.9, ICD10: J06.9 Strep test was positive. Pharyngitis and most bothersome symptom. Will be placed on amoxicillin today. Additionally diagnosed with viral URI due to nasal congestion and cough. Will use OTC medication for this. Patient was educated on supportive therapies. Patient will follow up with primary care provider as needed. Patient was instructed to immediately proceed to emergency room for any new, worsening, or symptoms lasting longer than anticipated. The patient's clinical presentation is otherwise unremarkable at this time. Based on exam and clinical finding, the patient is stable for discharge. Plan of care was discussed with patient. Patient verbalizes understanding and agrees to plan of care. This note was generated using Tower[employer] software. It may contain errors in wording, punctuation, or spelling. Jake Castro APRN.DIRECTOR HEMATOLOGY documented in this encounter [facility] History of Past illness Narrative 07-03-2006 Note Date & Type Note Facility documented as of this encounter (statuses as of 07/08/2023) [facility] Evaluation note Note Date & Type Note Facility documented in this encounter [facility] Summary Purpose Family History No Family History Records Found Advance Directives No Advanced Directives Records Found Additional Source Comments Source Comments (unrecognize d section and content) In the event this informatio n is protected by the Federal Confidentiality of Alcohol and Drug Abuse Patient Records regulations: The Federal rules restrict any use of the information to criminally investigate or prosecute any alcohol or drug abuse patient.[facility] Reason for Visit (unrecogniz ed section and content) Care Teams (unrecognized sec tion and content) INFORMATION SOURCE (unrecogn ized section and content) FOR RECORDS PERTAINING TO PATIENTS WHO ARE OR HAVE BEEN ENROLLED IN A CHEMICAL DEPENDENCY/SUBSTANCEABUSE PROGRAM, SOME INFORMATION MAY BE OMITTED. This clinical summary was aggregated from multiple sources. Caution should be exercised in using it in the provision of clinical care. This summary normalizes information from multiple sources, and as a consequence, information in this document may materially change the coding, format and clinical context of patient data. In addition, data may be omitted in some cases. CLINICAL DECISIONS SHOULD BE BASED ON THE PRIMARY CLINICAL RECORDS. [employer] [facility]. provides no warranty or guarantee of the accuracy or completeness of information in this document.
[2023-10-29 12:24] LABS: Absolute Lymphocyte Count 3.09 X10^3/uL (0.83-4.51); Absolute Neutrophil Count 2.7 X10^3/uL (2.0-7.7); Basophil# 0.01 X10^3/uL; Basophil% 0.2 % (0-1); Eosinophil# 0.14 X10^3/uL; Eosinophils% 2.2 % (0-5); Hematocrit 41.4 % (37-47); Hemoglobin 13.8 g/dL (12.0-15.0); Lymphocyte # 3.09 X10^3/ul (0.83-4.51); Lymphocyte % 48.7 % (19-41); Mean Corp Hgb Conc 33.3 g/dL (32-36); Mean Platelet Vol. 10.1 fl (6.2-12.0); Monocyte# 0.37 X10^3/uL; Monocyte% 5.8 % (0-10); NRBC Flagged by Analyzer 0 % (0-5); Neutrophil # 2.72 X10^3/uL (2.7-7.7); Neutrophil % 42.9 % (47-70); Platelet Count 275 K/mm3 (150-450); RBC Distribution Width CV 12.7 % (11.6-14.6); RBC Distribution Width SD 40.6 fl (35.1-43.9); Red Blood Count 4.76 M/mm3 (4.2-5.4); White Blood Count 6.3 K/mm3 (4.4-11.0)
[2023-10-29 12:59] LABS: Vitamin B12 544 pg/mL (211-911)
[2023-10-29 13:10] LABS: ALB/GLOB Ratio 0.9 RATIO (0.9-2.4); AST(SGOT) 22 U/L (15-37); Alanine Aminotransfer ALT/SGPT 27 U/L (13-56); Albumin, Serum 3.6 g/dL (3.2-5.0); Alkaline Phosphatase 73 U/L (45-117); Anion Gap 3 (5-15); BUN 14 mg/dL (7-18); BUN/Creat Ratio 18.2 RATIO (10-20); Calcium,Total 9.2 mg/dL (8.5-10.1); Chloride 106 mmol/L (98-107); Cholesterol 196 mg/dL (200); Creatinine, Serum 0.77 mg/dL (0.55-1.02); EST Glomerular Filtration Rate 90 mL/min (>60); Est Glom Filt Rate - Afr Amer 108 mL/min (>60); Globulin 3.8 g/dL (2.2-4.2); Glucose 98 mg/dL (74-106); High Density Lipoprotein 50 mg/dL; Potassium 4.1 mmol/L (3.5-5.1); Protein, Total 7.4 g/dL (6.4-8.2); Sodium Level 136 mmol/L (136-145); Thyroid Stim Hormone (TSH) 1.29 uIU/mL (0.358-3.74); Triglycerides 141 mg/dL; Very Low Density Lipoprotein 28 mg/dL (5-40)
[2023-10-29 13:46] LABS: Follicle Stimulating Hormone 6.9 mIU/mL; Luteinizing Hormone 11.2 mIU/mL
== END | disposition home or self-care (01) ==
LOC: BIMLAB 09:51
PROVIDERS: PCP Internal Medicine; Referring Provider Internal Medicine; Visit Provider Internal Medicine
DX: E66.01 Morbid (severe) obesity due to excess calories (principal); Z68.41 Body mass index [BMI] 40.0-44.9, adult; R12 Heartburn
CPT/HCPCS: 36415; 80053; 80061; 82607; 82670; 83001; 83002; 84443; 85025

== ENCOUNTER 2024-01-04 09:30 | Outpatient (RCR) | payer MEDICAID, SELFPAY ==
--- NOTE | 2023-12-06 13:39 | HP.PTEVAL ---
Patient's Visit Information Visit Information Visit Information: DILLAN CONRAD is a 38 year old F referred to Physical Therapy by JONATHAN Bright with a diagnosis of TMK dysfunction. Date of Evaluation: 12/06/23 Physical Therapist: Jasvir Love, SWATIT, OCS, CSCS Visit Plan Frequency: 3x /Week Duration: 4-6 Weeks Plan: 2-3x/week for 4-6 as needed for... 1. US R TMJ nonthermal, 2. STM to R pterygoids internally and masseter externally, R jaw opening/distraction mobs and PROM as popping dies down, R deviation ROM and opeining. 3. TENS with MH to R TMJ area 4. rom and isometric strengthening to jaw, postural correction/retraction Subjective Subjective: I have pretty bad TMJ, worse in the last year as her jaw gets stuck chewing , eating , talking. Sometimes cannot close it in the am . This sometimes causes DUONG. Not sure why it is worse lately. has not been wearing partials lately as they are being adjusted adn that might make a difference. No previous treatment for this. Doctor has given her MM relaxer and has bite gaurd which she bites through. Clenches at night. Tries to avoid this when she can. Has been sober for three years and was not paying to attention until about 3 yrs ago. Sleep is not a problem. but wakes up with DUONG. She thinks most of the problem is on R side. Employed in [employer], works for [employer] and no problem with that. Hobbies:ridingbikes is OK. It is hard to eat due to teeth extracted, chewing causes clicking in the jaw. Dentist has ignored the problem. Objective Objective: posture is acceptable with slight FW head. Cervical aROM WFL and without pain, Scapular AROM WFL, UE AROM normal and without pain today. Strength UE 4/5 without pain, reflexes jaw, bi and tri 2/3 Sensation UE WNL to gross light touch. Resting posture of jaw is 2-3 mm of L deviation. has full L deviation to 12 mm and R deviation limited to 10. Pops to come back from full L deviation. Jaw opening is 34 MM and pops conssistently upon closure in R TMJ, even form half opening. Not painful but loud. Tender in R pterygoids moderately and minimally in masseter R. Audible and palpable pop in R TMJ closing from opening half way consistently Goals Goal 1:: Jaw opening to 40 mm and B deviation to 12 without pops to improve comfort Goal Time Frame: 4-6 Weeks Goal 2:: Patient feel jaw pain and DUONG 75% better to 1/10 at worst. Goal Time Frame: 4-6 Weeks Goal 3:: I appropriate home management of condition Goal Time Frame: 4-6 Weeks Rehabilitation Potential Physical Therapy Diagnosis: jaw lacks ROM effecting eating and comfort. Rehabilitation Potential: Fair Anticipated Interventions Patient/Client Instruction: Educate patient on: Condition and Plan of Care For the Purpose of:: To decrease pain, To increase ROM, To improve nutrient delivery to tissue, To improve muscle performance and motor function, To increase tolerance to activity/condition/position and To improve ability of physical actions for home/community/work/leisure Therapeutic Exercise to Include: Strength training, Flexibilty training, Passive ROM and Active ROM For the Purpose of:: To decrease pain, To increase ROM, To improve nutrient delivery to tissue, To improve muscle performance and motor function and To increase tolerance to activity/condition/position Manual Therapy Techniques to Include: Mobilization, Passive ROM and Soft tissue mobilization For the Purpose of:: To decrease pain, To increase ROM, To improve nutrient delivery to tissue and To increase tolerance to activity/condition/position TENS: Yes Thermo therapy (hot pack): Yes Ultrasound (thermal/non thermal): Yes (nonthermal R TMJ) For the Purpose of:: To decrease pain, To decrease swelling/inflammation, To increase ROM, To improve nutrient delivery to tissue and To increase tolerance to activity/condition/position Text: Thank you for the opportunity to evaluate your patient. For Medicare and Medicare HMO plans, please review the plan of care and approve it. It will need to be FAXED BACK to us at [phone] for Medicare purposes. For Medicare only, by signing this I certify the plan of care. Please let me know if there are questions or concerns regarding this plan of care. Physician Signature: Date:
--- NOTE | 2024-01-07 08:59 | HP.PTDCSUM_ITS ---
Discharge Summary D/C summary: It has been my pleasure to treat DILLAN CONRAD referred by Karlee Erwin, MAYURI- C, with the diagnosis of Right TMJ dysfunction for a total of 2 visit(s). Discharge Date: 01/07/24 Please see the following information for a summary of their discharge status. Subjective Subjective: Pt reports that she has had jaw popping for a couple of years. Notes that she finds her self clinching her teeth often and has to tell herself to relax. Pain R TMJ: Pain Intensity (Out of 10): 0 Objective Objective/Function: More audible and palpable popping in R TMJ with left lateral excursion. No better, no worse following ultrasound, manual and exercise. No pain at rest. Goals Goal 1:: Jaw opening to 40 mm and B deviation to 12 without pops to improve comfort Goal 2:: Patient feel jaw pain and DUONG 75% better to 1/10 at worst. Goal 3:: I appropriate home management of condition Plan Plan: Pt called to cancel 3rd and all appointments without reason. Will discontinue at this time. D/C Information Discharge Comments: Pt cancelled remaining appointments in POC without reason. Will discontinue at this time at her request without official recheck. d/c sentence: If there are questions or concerns regarding this patient's physical therapy, please feel free to call me at [phone]. Thank you for the referral of this patient. Sincerely, Jasvir Love, DPT, OCS, CSCS
== END 2024-01-04 19:00 | disposition home or self-care (01) ==
LOC: PT 09:30
PROVIDERS: PCP Internal Medicine; Referring Provider Nurse Practitioner; Visit Provider Nurse Practitioner
DX: M26.609 Unspecified temporomandibular joint disorder, unspecified side (principal)
CPT/HCPCS: 97035; 97161

== ENCOUNTER → 2024-10-30 | Outpatient (CLI) | payer MEDICAID, SELFPAY ==
[2024-10-30 15:29] LABS: Absolute Lymphocyte Count 5.09 X10^3/uL (0.83-4.51); Absolute Neutrophil Count 3.5 X10^3/uL (2.0-7.7); Basophil# 0.04 X10^3/uL; Basophil% 0.4 % (0-1); Eosinophil# 0.14 X10^3/uL; Eosinophils% 1.5 % (0-5); Hematocrit 40.3 % (37-47); Hemoglobin 13.3 g/dL (12.0-15.0); Lymphocyte # 5.09 X10^3/ul (0.83-4.51); Lymphocyte % 53.7 % (19-41); Mean Corpuscular Hgb 29.4 pg (27.0-32.0); Mean Corpuscular Volume 89.2 fL (81-99); Mean Platelet Vol. 9.6 fl (6.2-12.0); Monocyte# 0.61 X10^3/uL; Monocyte% 6.4 % (0-10); NRBC Flagged by Analyzer 0 % (0-5); Neutrophil % 36.9 % (47-70); POSITIVE DIFFERENTIAL YES; Platelet Count 378 K/mm3 (150-450); RBC Distribution Width CV 12.5 % (11.6-14.6); RBC Distribution Width SD 40.4 fl (35.1-43.9); Red Blood Count 4.52 M/mm3 (4.2-5.4); White Blood Count 9.5 K/mm3 (4.4-11.0)
[2024-10-30 15:35] LABS: Differential Indicated SCAN CRITERIA MET
[2024-10-30 15:45] LABS: International Normalized Ratio 0.9; Prothrombin Time (Protime)PT. 12.7 SECONDS (11.7-14.9)
[2024-10-30 15:54] LABS: ALB/GLOB Ratio 0.8 RATIO (0.9-2.4); AST(SGOT) 14 U/L (15-37); Alanine Aminotransfer ALT/SGPT 25 U/L (13-56); Albumin, Serum 3.4 g/dL (3.2-5.0); Alkaline Phosphatase 71 U/L (45-117); Anion Gap 7 (5-15); BUN 11 mg/dL (7-18); BUN/Creat Ratio 15.3 RATIO (10-20); Calcium,Total 9.3 mg/dL (8.5-10.1); Chloride 106 mmol/L (98-107); Cholesterol 175 mg/dL (200); Creatinine, Serum 0.72 mg/dL (0.55-1.02); EST Glomerular Filtration Rate 96 mL/min (>60); Est Glom Filt Rate - Afr Amer 116 mL/min (>60); Globulin 4.1 g/dL (2.2-4.2); Glucose 87 mg/dL (74-106); High Density Lipoprotein 42 mg/dL; Potassium 4.4 mmol/L (3.5-5.1); Protein, Total 7.5 g/dL (6.4-8.2); Sodium Level 138 mmol/L (136-145); Triglycerides 232 mg/dL; Very Low Density Lipoprotein 46 mg/dL (5-40)
[2024-10-30 21:10] LABS: Atypical Lymphocyte 1+ %; Reactive Lymphocyte 2+
[2024-11-01 21:07] LABS: HCV Quant. RNA PCR HCV Not Detected IU/mL (.)
== END | disposition home or self-care (01) ==
LOC: BIMLAB 11:48
PROVIDERS: Internal Medicine; PCP Internal Medicine; Referring Provider Internal Medicine; Visit Provider Internal Medicine
DX: E66.01 Morbid (severe) obesity due to excess calories (principal); Z68.41 Body mass index [BMI] 40.0-44.9, adult; B18.2 Chronic viral hepatitis C; K76.0 Fatty (change of) liver, not elsewhere classified
CPT/HCPCS: 36415; 80053; 80061; 85025; 85610; 86140; 87522

== ENCOUNTER → 2024-11-27 | Outpatient (CLI) | payer MEDICAID, SELFPAY ==
--- NOTE | 2024-11-27 08:02 | US_ITS ---
PROCEDURE: ULTRASOUND ABDOMEN LIMITED WITH ELASTOGRAPHY REASON FOR EXAM: Fatty liver. COMPARISON: Abdomen limited with elastography dated 01/25/2023. TECHNIQUE: Right upper quadrant abdominal ultrasound. Shear wave elastography for non- invasive assessment of liver tissue stiffness was performed. FINDINGS: LIVER: Size: Unremarkable Length: 18.2 cm sagittally. Echotexture: Hyperechoic. Blood flow: Hepatopetal. Contour: Normal Lesions: None identified Elastography: EQI Med: 7.46 kPa EQI Med Juan: 1.56 m/s GALLBLADDER: Multiple hyperechogenic foci with posterior acoustic shadowing. Hyperechogenic focus/stone near the cystic duct measuring 0.9 x 0.8 x 0.7 cm. COMMON BILE DUCT: 0.65 cm.. PANCREAS: Normal Right kidney: Size measures 11.3 x 6.4 x 5.1 cm. Cortex measures 1.6 cm. US/ABD Limited w/ Elastography IMPRESSION: 1. F 2 to F 3, moderate to severe likelihood of clinically significant hepatic fibrosis. 2. Steatosis. 3. Cholelithiasis with probable calculus at the cystic duct origin. Reference Values: SRU <1.37 m/s (5.7kPa): No to mild fibrosis 1.37 m/s - 2.2 m/s: Moderate to severe fibrosis >2.2 m/s (15kPa): Significant fibrosis / cirrhosis METAVIR Score F2 or higher: 1.34 m/s (5.7kPa) F3 or higher: 1.55 m/s (7.3kPa) F4: 1.80 m/s (10kPa) . Reading Location: [place] [id number]
== END | disposition home or self-care (01) ==
LOC: OPUS 08:02
PROVIDERS: PCP Internal Medicine; Referring Provider Internal Medicine; Visit Provider Internal Medicine
DX: B18.2 Chronic viral hepatitis C (principal)
CPT/HCPCS: 76705; 76981

== ENCOUNTER → 2025-03-03 | Outpatient (CLI) | payer MEDICAID, SELFPAY ==
[2025-03-03 10:34] LABS: Absolute Lymphocyte Count 4.15 X10^3/uL (0.83-4.51); Basophil# 0.02 X10^3/uL; Basophil% 0.3 % (0-1); Eosinophil# 0.12 X10^3/uL; Eosinophils% 1.8 % (0-5); Hematocrit 37.6 % (37-47); Hemoglobin 13.4 g/dL (12.0-15.0); Lymphocyte # 4.15 X10^3/ul (0.83-4.51); Lymphocyte % 61.7 % (19-41); Mean Corp Hgb Conc 35.6 g/dL (32-36); Mean Corpuscular Hgb 29.9 pg (27.0-32.0); Mean Corpuscular Volume 83.9 fL (81-99); Mean Platelet Vol. 9.7 fl (6.2-12.0); Monocyte# 0.45 X10^3/uL; Monocyte% 6.7 % (0-10); NRBC Flagged by Analyzer 0 % (0-5); Neutrophil # 1.98 X10^3/uL (2.7-7.7); Neutrophil % 29.4 % (47-70); Platelet Count 272 K/mm3 (150-450); RBC Distribution Width CV 12.2 % (11.6-14.6); Red Blood Count 4.48 M/mm3 (4.2-5.4); White Blood Count 6.7 K/mm3 (4.4-11.0)
[2025-03-03 11:20] LABS: ALB/GLOB Ratio 1.6 RATIO (0.9-2.4); AST(SGOT) 20 U/L (<=31); Alanine Aminotransfer ALT/SGPT 14 U/L (<=34); Albumin, Serum 4.3 g/dL (3.5-5.0); Alkaline Phosphatase 54 U/L (35-104); Anion Gap 11 (5-15); BUN 12 mg/dL (4-19); BUN/Creat Ratio 14.8 RATIO (10-20); Calcium,Total 9.1 mg/dL (7.6-11.0); Carbon Dioxide 20.7 mmol/L (21.0-32.0); Chloride 105 mmol/L (98-108); Cholesterol 155 mg/dL (<=200); Creatinine, Serum 0.81 mg/dL (0.70-1.20); EST Glomerular Filtration Rate 95 (>60); Globulin 2.6 g/dL (2.2-4.2); Glucose 98 mg/dL (70-99); High Density Lipoprotein 42 mg/dL; Low Density Lipoprotein Calc. 91 mg/dL; Potassium 4.1 mmol/L (3.3-5.1); Protein, Total 6.9 g/dL (5.9-8.4); Sodium Level 137 mmol/L (133-145); Triglycerides 110 mg/dL; Very Low Density Lipoprotein 22 mg/dL (5-40); cholesterol:hdl ratio screen 3.66
[2025-03-03 11:21] LABS: CRP < 3.00 mg/L (0.0-3.0)
== END | disposition home or self-care (01) ==
LOC: LAB 10:06
PROVIDERS: PCP Internal Medicine; Referring Provider Internal Medicine; Visit Provider Internal Medicine
DX: K76.0 Fatty (change of) liver, not elsewhere classified (principal); B18.2 Chronic viral hepatitis C; E78.5 Hyperlipidemia, unspecified
CPT/HCPCS: 36415; 80053; 80061; 85025; 86140